=== PATIENT | female | born 1990 | race Caucasian/White ===

== ENCOUNTER 2018-03-26 18:50 | Observation (INO) ==
--- OUTSIDE RECORDS SUMMARY | 2018-03-26 21:01 | External Medical Summary | Continuity of Care Document ---
:1990 Author Organization [facility] Address [address] [place] [address] [phone] Phone Support Name Relationship Address Phone Lisandro Jacinto [address] [place] [address] [phone] [place] [address] Allergies, Adverse Reactions, Alerts Substance Reaction Severity Status No Known Drug Allergies Unknown Active Medications Medication Instructions Dosage Effective Dates (start - stop) Status Comments Drug Treatment Unknown Problems Condition Effective Dates (start - stop) Clinical Status Dysfunctional Uterine Bleeding - Dysfunctional Uterine Bleeding Pelvic and perineal pain Supervision of other high risk - pregnancies, first trimester Oth diseases and conditions compl - preg/chldbrth Less than 8 weeks gestation of - Personal history of comp of preg, - chldbrth and the puerp Retained uterin contracep dev in , unsp trimester Encntr for removal and reinsertion of - uterin contracep dev Retained uterin contracep dev in - , unsp trimester Pelvic and perineal pain Encounter for removal of intrauterine - contraceptive device Encounter for removal of intrauterine contraceptive device 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) - (routine) w/o abn findings Encntr screen for infections w sexl mode of transmiss Encntr screen for infections w sexl mode of transmiss Pap Smear Screening, Cervix Encounter for insertion of - intrauterine contraceptive device Encounter for test, result - negative Active GERD Active Procedures Procedure Date Unknown Results Test Name Date and Time Measure Units Reference Range Abnormal Flag Comments Unknown Advance Directives Directive Yes / No Effective Date File Name Unknown Encounters Encounter Practice Location Reason(s) Diagnoses Date Provider Care Team Description For Visit Members Judith Macario Supervision of Dec-2 Sobbing Referring In Womens other high risk [place]. Provider: Adam CROWDER, pregnancies, 7 700 [address]ef[address] first Medical Yamel L, 1522, trimesterOth Center [address] [place] [address], [facility] and [facility], conditions compl Suite Center [id number], preg/chldbrthLess 120, Carlos 120, [place] than 8 weeks Renaldo Macario, tel: gestation of [place], [place], pregnancyPersonal [id number], [id number]. history of comp [place]. tel: of preg, chldbrth tel: [phone] and the puerp [phone] [facility] Retained uterin Dec-2 Sobbing Referring In Womens Ultrasound contracep dev in [place]. Provider: Adam CROWDER, , unsp 7 700 Estefania PO Box trimester Medical Yamel L, 1522, Center [address] [place] [address], Suite Center [id number], 120, Carlos 120, [place] Renaldo Macario, tel: [place], [address], [id number]. [place]. tel: tel: [phone] Judith Macario Dec-1 Sobbing In Womens [place]. Adam CROWDER, 7 700 PO [address] Medical 1522, Center [address] [place], [facility] [place], [place], [address] [id number], 120, [place], [place]: [place], [address], [place]. tel: [phone] Judith Macario Retained uterin Dec-1 Sobbing Referring In Womens contracep dev in [place]. Provider: Adam CROWDER, , unsp 7 700 [address]efania PO Box trimesterEncntr Medical Yamel L, 1522, for removal and Center [address] [place] [address], reinsertion of [facility], uterin contracep Suite Center [id number], dev 120, Carlos 120, [place] Renaldo Macario, tel:+[phone] [place], [address], [id number]. [place]. 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 Provider: dAam CROWDER, (routine) w/o abn 7 700 [address]efania PO Box findingsEncntr Medical Yamel L, 1522, screen for Center [address] [place], infections w sexl , [facility] [place], mode of 120, Center , transmissEncntr Macario, Carlos 120, [place] screen for Renaldo [place], tel:[phone] infections w sexl [phone] [place], mode of , [place]. [id number]. transmissPap tel: tel:[phone] Smear Screening, [phone] [facility] Encounter for Dec-2 Yamel Referring In Womens insertion of Estefania. Provider: Adam CROWDER, intrauterine 5 700 Estefania PO Box contraceptive Medical Yamel L, 1522, deviceEncounter Center [address] [place], for , [facility] [place], test, result 120, Center , negative Macario, Carlos 120, [place] Renaldo [place], tel:[phone] [place], , [place]. [id number]. tel: tel:[phone] [facility] Pelvic and Dec-0 Yamel Referring In Womens perineal - Estefania. Provider: Adam CROWDER, painEncounter for 5 700 [address]ef[address] PO Box removal of Medical Yamel L, 1522, intrauterine Center [address] [place], contraceptive , [facility] [place], deviceEncounter 120, Center , for removal of Macario, Carlos 120, [place] intrauterine Renaldo [place], tel:[phone] contraceptive [phone] [place], device , [place]. [id number]. tel: tel:[phone] [facility] Dysfunctional Dec-0 Yamel Referring In Womens Ultrasound Uterine Bleeding - Estefania. Provider: Adam CROWDER, 5 700 [address]efania PO Box Medical Yamel L, 1522, Center [facility] [address] [place], Carlos Lam [place], 120, Center [id number], Renaldo, [place] 120, [place] Renaldo [place], tel:[phone] [place], , [place]. [id number]. tel: tel:[phone] [facility] Yamel Referring In Womens Uterine 3-201 Estefania. Provider: Adam CROWDER, BleedingPelvic 5 700 Estefania PO Box and perineal pain Medical Yamel L, 1522, Center [address], [facility] [place], 120, Center [id number], Renaldo, [facility] 120, Renaldo [place], tel:[phone] [place], , [place]. [id number]. tel: tel:[phone] Judith Macario Yamel Referring In Womens 1-201 Estefania. Provider: Adam CROWDER, 4 700 Estefania PO Box Medical Yamel L, 1522, Center [address], [facility] [place], 120, Center [id number], Renaldo, [facility] 120, Renaldo [place], tel:[phone] [facility] , [place]. [id number]. tel: tel:[phone] Judith Macario Yamel Referring In Womens 9-201 Estefania. Provider: Adam CROWDER, 4 700 Estefania PO Box Medical Yamel L, 1522, Center [address], [facility] [place], 120, Center [id number], Renaldo, [facility] 120, [place] Renaldo [place], tel:[phone] [facility] , [place]. [id number]. tel: tel:[phone] Family History Family Member Diagnosis Age At Onset Paternal Grandmother Hypertension No family history of Stroke No family history of Osteoporosis Paternal Grandfather Lung Disease Father Hypertension No family history of Colon Cancer Cousin Ovarian Cancer Maternal Grandmother Renal disease Maternal Grandmother Cancer, breast Maternal Grandfather Cardiovascular Disease No family history of Epilepsy No family history of Thyroid Disorder Maternal Grandmother Diabetes mellitus Immunizations Vaccine Date Status Comments Tdap completed Source: New Immunization Record Influenza, injectable, completed Source: New Immunization Record quadrivalent, preservative free, 3 yrs or older Payers Payer name Insurance type Covered constitution party ID Authorization(s) [facility] [id number] Medicaid [facility] [id number] [facility] [id number] [facility] [id number] Medicaid [facility] [id number] [facility] [id number] Medicaid Social History Type Description Quantity Date Captured Unknown Vital Signs Date / Height Weight BMI Pulse Blood Temperature Respiratory Body Head BMI Time: Rate Pressure Rate Surface Circumference percentile Area Unknown Chief Complaint And Reason For Visit Unknown Chief Complaint And Reason For Visit Reason For Referral Reason For Referral Unknown Plan Of Care Date Type Action Status Goal Lifestyle education regarding completed diet Goal Lifestyle education regarding completed diet Appointment Lisa Jacinto BOOKED Appointment Lisa Jacinto BOOKED Future Order: Radiology Order Transvaginal Pelvic Ultrasound Ordered ([id number]) Date Type Problem Goal Intervention Status Start Date Unknown. History Of Present Illness Encounter Date Complaint History Of Present Illness This patient has no known history of present illness Functional Status Encounter Date Functional Assessment Cognitive Assessment Unknown Medications Administered Medication Instructions Dosage Effective Dates (start - stop) Status Comments Drug Treatment Unknown Instructions Date Instruction Additional Information nutrition and weight gain counseling, special diet toxoplasmosis precautions (cats / raw meat) sexual activity exercise indications for ultrasound influenza vaccine environmental / work hazards travel tobacco (ask, advise, assess, assist and arrange) alcohol illicit / recreational drugs use of any medications (including supplements, vitamins, herbs, OTC drugs) smoking counseling domestic violence seat belt use childbirth classes / hospital facilities hospital registration genetic testing new ob handbook risks HIV and other routine tests risk factors identified by history anticipated course of care Lifestyle education regarding diet Related to Body mass index 35.0-35.9 Giving encouragement to exercise Related to Body mass index 35.0-35.9 Giving encouragement to exercise Related to Body mass index 35.0-35.9 Lifestyle education regarding diet Related to Body mass index 35.0-35.9
--- OUTSIDE RECORDS SUMMARY | 2018-03-26 21:01 | External Medical Summary | Continuity of Care Document ---
:1990 Author Organization [facility] Address [address] [place] [address] [phone] Phone Support Name Relationship Address Phone Lisandro Jacinto [address] [place] [address] [phone] [place] [address] Allergies, Adverse Reactions, Alerts Substance Reaction Severity Status No Known Drug Allergies Unknown Active Medications Medication Instructions Dosage Effective Dates Status Comments (start - stop) Vitamin take 1 tablet by Not Available - Active tablet oral route every day Aspir-Low 81 mg take 1 tablet by 81 MG - Active tablet,delayed oral route every release day Problems Condition Effective Dates (start - stop) Clinical Status Supervision of other high risk - pregnancies, third trimester 33 weeks gestation of - Supervision of other high risk - pregnancies, first trimester Oth diseases and conditions compl - preg/chldbrth 12 weeks gestation of - Personal history of comp of preg, - chldbrth and the puerp Supervision of other high risk - pregnancies, second trimester Oth diseases and conditions compl - preg/chldbrth 25 weeks gestation of - Personal history of comp of preg, - chldbrth and the puerp Dysfunctional Uterine Bleeding - Dysfunctional Uterine Bleeding Pelvic and perineal pain Supervision of other high risk - pregnancies, first trimester Oth diseases and conditions compl - preg/chldbrth Less than 8 weeks gestation of - Personal history of comp of preg, - chldbrth and the puerp Supervision of other high risk - pregnancies, second trimester Oth diseases and conditions compl - preg/chldbrth 21 weeks gestation of - Personal history of comp of preg, - chldbrth and the puerp Supervision of other high risk - pregnancies, second trimester Oth diseases and conditions compl - preg/chldbrth 21 weeks gestation of - Supervision of other high risk - pregnancies, second trimester Oth diseases and conditions compl - preg/chldbrth 16 weeks gestation of - Personal history of comp of preg, - chldbrth and the puerp Supervision of other high risk - pregnancies, third trimester Oth diseases and conditions compl - preg/chldbrth 28 weeks gestation of - Personal history of comp of preg, - chldbrth and the puerp Supervision of other high risk - pregnancies, third trimester Other malformation of placenta, - unspecified trimester 34 weeks gestation of - Personal history of comp of preg, - chldbrth and the puerp Supervision of other high risk - pregnancies, third trimester Other malformation of placenta, - unspecified trimester 35 weeks gestation of - Supervision of other high risk - pregnancies, third trimester 28 weeks gestation of - Personal history of comp of preg, - chldbrth and the puerp Supervision of other high risk - pregnancies, third trimester Abnormal glucose complicating - Oth diseases and conditions compl - preg/chldbrth Personal history of comp of preg, - chldbrth and the puerp Supervision of other high risk - pregnancies, third trimester Other malformation of placenta, - unspecified trimester 34 weeks gestation of - Supervision of other high risk - pregnancies, third trimester Abnormal glucose complicating - Oth diseases and conditions compl - preg/chldbrth Personal history of comp of preg, - chldbrth and the puerp Retained uterin contracep dev in , unsp trimester Encntr for removal and reinsertion of - uterin contracep dev Retained uterin contracep dev in - , unsp trimester Pelvic and perineal pain Encounter for removal of intrauterine - contraceptive device Encounter for removal of intrauterine contraceptive device 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 Encntr screen for infections w sexl mode of transmiss Encntr screen for infections w sexl mode of transmiss Pap Smear Screening, Cervix Encounter for insertion of - intrauterine contraceptive device Encounter for test, result - negative Active GERD Active Procedures Procedure Date Ultrasnd preg uterus, flwup/repeat Results Test Name Date and Time Measure Units Reference Range Abnormal Flag Comments Unknown Advance Directives Directive Yes / No Effective Date File Name Unknown Encounters Encounter Practice Location Reason(s) Diagnoses Date Provider Care Team Description For Visit Members Judith Macario Supervision of [place] Referring In Womens Ultrasound other high risk [place]. Provider: Health [place], pregnancies, 8 [address] third Medical Yamel L, 1522, trimesterOther Center [address] [place], malformation of [place], Medical [place], placenta, Suite Center [id number], unspecified 120, [place] 120, [place] weeks Renaldo Macario, tel:5 gestation of ASHLYN, [place], [id number] [id number], [id number]. [place]. tel: tel: [phone] Judith Macario Supervision of [place] Referring In Womens other high risk [place]. Provider: Health [place], pregnancies, 8 700 [address]ef[address] third Medical Yamel L, 1522, trimesterOther Center 700 [place], malformation of [place], Medical [place], placenta, Suite Center [id number], unspecified 120, [place] 120, [place] [email or web address] weeks Renaldo Macario, tel: gestation of [place], pregnancyPersonal [id number], [id number]. history of comp [place]. tel: of preg, chldbrth tel: [phone] and the puerp [id number] Associates Renaldo Supervision of Jese-0 [place] Referring In Womens Ultrasound other high risk [address] [place] [address]. Provider: Health PA, pregnancies, 8 700 [address] third Medical Yamle L, 1522, trimesterOther Center 700 [place], malformation of [facility], placenta, Suite Center [id number], unspecified 120, Carlos 120, [place] [email or web address] weeks Renaldo Macario, tel: gestation of [place], [address], [id number]. [place]. tel: tel: [phone] Macario Supervision of Hima-2 [place] Referring In Womens other high risk [address] [place] [address]. Provider: Health PA, pregnancies, 8 700 Mic [address] third Medical [place] L, 1522, trimesterAbnormal Center 700 [place], glucose [facility], complicating Suite Center [id number], pregnancyOth 120, Drive [place] diseases and Renaldo, Suite [address], tel: conditions compl ASHLYN Macario, preg/chldbrthPers [address], [place], [address]. onal history of [place]. tel: comp of preg, tel: [phone] chlastrid and the [id number] puerp Associates Renaldo Supervision of Hima-2 [place] Referring In Womens Ultrasound other high risk [address] [place] [address]. Provider: Health VEL, pregnancies, 8 700 [address] third [id number] Medical Yamel L, 1522, weeks gestation Center 700 [place], of [facility], Suite Center [id number], 120, Carlos 120, [place] Renaldo Macario, tel:316 [place], [address], [id number]. [place]. tel: tel: [phone] Macario Supervision of Hima-0 [place] Referring In Womens other high risk [address] [place] [address]. Provider: Health PA, pregnancies, 8 700 [address] third Medical Yamel L, 1522, trimesterAbnormal Center 700 [facility], complicating Suite Center [id number], pregnancyOth 120, Carlos 120, [place] diseases and Renaldo Macario, tel:+ conditions compl [place], preg/chldbrthPers [address], [id number]. onal history of [place]. tel: comp of preg, tel: [phone] chldbrth and the [id number] puerp Associates Renaldo Supervision of May-2 [place] Referring In Womens other high risk -201 [place]. Provider: Health PA, pregnancies, 8 700 [address] third Medical Yamel L, 1522, trimesterOth Center 700 [facility] and [facility], conditions compl Suite Center [id number], preg/[email or web address] 120, Carlos 120, [place] weeks gestation Renaldo Macario, tel: of [place], pregnancyPersonal [address], [id number]. history of comp [place]. tel: of preg, chldbrth tel: [phone] and the puerp [id number] Associates Renaldo Supervision of January-2 [place] Referring In Womens Ultrasound other high risk - [place]. Provider: Health PA, pregnancies, 8 700 [address]ef[address] third [id number] Medical Yamel L, 1522, weeks gestation Center 700 [place], [facility], pregnancyPersonal Suite Center [id number], history of comp 120, Carlos 120, [place] of preg, chldbrth Renaldo Macario, tel: [place], [address], [id number]. [place]. tel: tel: [phone] Associates Renaldo Supervision of May-0 [place] Referring In Womens other high risk 3-201 [place]. Provider: Health PA, pregnancies, 8 700 [address] second Medical Yamel L, 1522, trimesterOth Center 700 [facility] and [facility], conditions compl Suite Center [id number], preg/pmfahdww00 120, Carlos 120, [place] weeks gestation Renaldo aMcario, tel:+[phone] of [place], [place], pregnancyPersonal [address], [id number]. history of comp [place]. tel: of preg, chldbrth tel: [phone] and the puerp [id number] Associates eRnaldo Supervision of Apr-0 [place] Referring In Womens other high risk 5-201 [place]. Provider: Health PA, pregnancies, 8 700 [address] Box second Medical Yamel L, 1522, trimesterOth Center 700 [facility] [email or web address] and [facility], conditions compl Suite Center [id number], preg/ 120, Carlos 120, [place] weeks gestation Renaldo Macario, tel: of [place], pregnancyPersonal [address], [id number]. history of comp [place]. tel: of preg, chldbrth tel: [phone] and the puerp [id number] Associates Renaldo Supervision of Apr-0 [place] Referring In Womens Ultrasound other high risk - [place]. Provider: Health PA, pregnancies, 8 700 Estefania PO Box second Medical Yamel L, 1522, trimesterOth Center 700 [facility] [email or web address] and [facility], conditions compl Suite Center [id number], preg/xutkpqos25 120, Carlos 120, [place] weeks gestation Renaldo Macario, tel:2 [place], [address], [id number]. [place]. tel: tel: [phone] Associates Renaldo Supervision of Mar-0 [place] Referring In Womens other high risk -201 [place]. Provider: Health PA, pregnancies, 8 700 [address] Box second Medical Yamel L, 1522, trimesterOth Center 700 [facility] [email or web address] and [facility], conditions compl Suite Center [id number], preg/czrkftul24 120, Carlos 120, [place] weeks gestation Renaldo Macario, tel:2 of [place], [place], pregnancyPersonal [address], [id number]. history of comp [place]. tel: of preg, chldbrth tel: [phone] and the puerp [id number] Associates Renaldo Supervision of Feb-0 [place] Referring In Womens other high risk [place]. Provider: Health VEL, pregnancies, 8 700 Estefania PO Box first Medical Yamel L, 1522, trimesterOth Center [address] [place] [address] and [facility], conditions compl Suite Center [id number], preg/bsymtowp20 120, Carlos 120, [place] weeks gestation Renaldo Macario, tel: of [place] pregnancyPersonal [address], [id number]. history of comp [place]. tel: of preg, chldbrth tel: [phone] and the puerp [id number] Associates Renaldo Supervision of Dec-2 [place] Referring In Womens other high risk [place]. Provider: Adam CROWDER, pregnancies, 7 700 [address]efania [address] Box first Medical Yamel L, 1522, trimesterOth Center [address] [place] [address] and [facility], conditions compl Suite Center [id number], preg/chldbrthLess 120, Carlos 120, [place] than 8 weeks Renaldo Macario, tel: gestation [place], pregnancyPersonal [address], [id number]. history of comp [place]. tel: of preg, chldbrth tel: [phone] and the puerp [phone] Associates Renaldo Retained uterin Dec-2 [place] Referring In Womens Ultrasound contracep dev in [place]. Provider: Adam CROWDER, , unsp 7 700 Estefania PO Box trimester Medical Yamel L, 1522, Center 700 [place], [facility], Suite Center [id number], 120, Carlos 120, US Renaldo Macario, tel: [place], [address], [id number]. [place]. tel: tel: [phone] Associates Renaldo Retained uterin Dec-1 [place] Referring In Womens contracep dev in [place]. Provider: Adam CROWDER, , unsp 7 700 Estefania PO Box trimesterEncntr Medical Yamel L, 1522, for removal and Center 700 [place], reinsertion of [facility], uterin contracep Suite Center [id number], dev 120, Carlos 120, [place] Renaldo Macario, tel: [place], [address], [id number]. [place]. 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 Provider: Adam CROWDER, (routine) w/o abn 7 700 Estefania PO Box findingsEncntr Medical Yamel L, 1522, screen for Center 700 [place], infections w sexl , [facility] ASHLYN, mode of 120, [place] [id number], transmissEncntr Renaldo, Carlos 120, [place] screen for Renaldo [place], tel: infections w sexl [id number] [place], mode of , [place]. [id number]. transmissPap tel: tel: Smear Screening, [phone] Cervix Judith Macario Encounter for Dec-2 Yamel Referring In Womens insertion of - Estefania. Provider: Adam CROWDER, intrauterine 5 700 [address]efania PO Box contraceptive Medical Yamel L, 1522, deviceEncounter Center 700 [place], for , [facility] ASHLYN, test, result 120, [place] [id number], negative Renaldo, Carlos 120, [place] Renaldo [place], tel: [phone] [place], , [place]. [id number]. tel: tel: [phone] Judith Macario Pelvic and Dec-0 Yamel Referring In Womens perineal -201 Estefania. Provider: Adam CROWDER, painEncounter for 5 700 [address]ef[address] PO Box removal of Medical Yamel L, 1522, intrauterine Center [address] [place], contraceptive , [facility] Olman [place], deviceEncounter 120, Center [id number], for removal of Renaldo, Carlos 120, [place] intrauterine Renaldo [place], tel: contraceptive [phone] [place], device , [place]. [id number]. tel: tel: [phone] Judith Macario Dysfunctional Dec-0 Yamel Referring In Womens Ultrasound Uterine Bleeding 9- Estefania. Provider: Adam CROWDER, 5 700 [address] PO Box Medical Yamel L, 1522, Center [address] Jessica, [facility] [place], 120, Center [id number], Renaldo, [facility] 120, Renaldo [place], tel:[phone] [place], , [place]. [id number]. tel: tel:[phone] Associates Renaldo Hendrickson Jul- Yamel Referring In Womens Uterine 3-201 Estefania. Provider: Adam CROWDER, BleedingPelvic 5 700 [address]ef[address] PO Box and perineal pain Medical Yamel L, 1522, Center [address], [facility], 120, Center [id number], [facility] 120, Renaldo [place], tel:[phone] [place], , [place]. [id number]. tel: tel:[phone] Associates Renaldo Aug-3 Yamel Referring In Womens 1-201 Estefania. Provider: Adam CROWDER, 4 700 [address]ef[address] PO Box Medical Yamel L, 1522, Center [address], [facility], 120, Center [id number], [facility] 120, Renaldo [place], tel:[phone] [place], , [place]. [id number]. tel: tel:+[phone] Associates Renaldo Aug- Yamel Referring In Womens 9-201 Estefania. Provider: Adam CROWDER, 4 700 [address]ef[address] PO Box Medical Yamel L, 1522, Center [facility] Dr Jessica, [facility], 120, Center [id number], [facility] 120, [place] Renaldo [place], tel:[phone] [place], , [place]. [id number]. tel: tel:[phone] Family History Family Member Diagnosis Age At [...] Comments Tdap completed Source: New Immunization Record Tdap completed Source: New Immunization Record Influenza, injectable, completed Source: New Immunization Record quadrivalent, preservative free, 3 yrs or older Payers Payer name Insurance type Covered republican ID Authorization(s) [facility] [id number] [place] [id number] [facility] [id number] [place] [id number] [facility] [id number] [place] BL [id number] [facility] [id number] Medicaid Social History Type Description Quantity Date [...] completed diet Appointment Lisa Jacinto BOOKED Appointment [place], Lisa BOOKED Appointment OrvilleLucrecia scottrice BOOKED Appointment [place], Lisa BOOKED Appointment [place], Lisa BOOKED Appointment OrvilleLucrecia scottrice BOOKED Appointment [place], Lisa BOOKED Appointment Lucrecia Jacintorice BOOKED Future Order: Radiology Order Ultrasound OB Follow-up ([id number]) Ordered Future Order: Radiology Order Transvaginal Pelvic Ultrasound Ordered ([id number]) Future Order: Radiology Order OB Detailed Complete Ultrasound Ordered ([id number]) Future Order: Radiology Order Biophysical Profile without NST Ordered ([id number]) Future Order: Radiology Order Ultrasound OB Follow-up ([id number]) Ordered Future Order: Radiology Order Biophysical Profile without NST Ordered ([id number]) Date Type Problem Goal Intervention Status Start [...]
--- OUTSIDE RECORDS SUMMARY | 2018-03-26 21:01 | External Medical Summary | Continuity of Care Document ---
:1991 Author Organization [facility] Address [address] [place] [address] [phone] Phone Support Name Relationship Address Phone Lisandro Jacinto [address] [place] [address] [phone] [place] [address] Allergies, Adverse Reactions, Alerts Substance Reaction Severity Status No Known Drug Allergies Unknown Active Medications Medication Instructions Dosage Effective Dates Status Comments (start - stop) Vitamin take 1 tablet by Not Available - Active tablet oral route every day Problems Condition Effective Dates (start - [...] removal of intrauterine contraceptive device 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 Provider: Health [place], pregnancies, 8 700 Estefania Box second Medical Yamel L, 1522, [address] [facility], conditions compl Suite Center [id number], preg/[id number] 120, Carlos 120, [place] weeks gestation Renaldo Macario, tel:+ [place], pregnancyPersonal [address], [id number]. history of comp [place]. tel: of preg, chldbrth tel: [phone] and the puerp [id number] Associates Renaldo Fe-2 [place] In Womens [place]. Health [place], 8 700 Box Medical 1522, [place], [place], Suite [id number], 120, [place] Renaldo, tel: [place], [address], [place]. tel: [phone] Judith Macario Supervision of Oct-0 [place] Referring In Womens other high risk [place]. Provider: Health PA, pregnancies, 8 700 Estefania PO Box first Medical Yamel L, 1522, trimesterOth Center [address] [place] [address] and [facility], conditions compl Suite Center [id number], preg/pcfzoqkg15 120, Carlos 120, [place] weeks gestation Renaldo Macario, tel: of [place], pregnancyPersonal [address], [id number]. history of comp [place]. tel: of preg, chldbrth tel: [phone] and the puerp [id number] Associates Renaldo Supervision of Dec-2 [place] Referring In Womens other high risk [place]. Provider: Adam CROWDER, pregnancies, 7 700 Estefania PO Box first Medical Yamel L, 1522, trimesterOth Center 700 [place], diseases and [facility], conditions compl Suite Center [id number], preg/chldbrthLess 120, Carlos 120, [place] than 8 weeks Renaldo Macario, tel: gestation of [place], pregnancyPersonal [address], [id number]. history of comp [place]. tel: of preg, chldbrth tel: [phone] and the puerp [id number] Associates eRnaldo Retained uterin Dec-2 [place] Referring In Womens Ultrasound contracep dev in [place]. Provider: Adam CROWDER, , unsp 7 700 Estefania PO Box trimester Medical Yamel L, 1522, Center 700 [place], [place], [facility], Suite Center [id number], 120, Carlos 120, [place] Renaldo Macario, tel: [place], [address], [id number]. [place]. tel: tel: [phone] Associates Renaldo Retained uterin Dec- [place] Referring In Womens contracep dev in [place]. Provider: Adam CROWDER, , unsp 7 700 Estefania PO Box trimesterEncntr Medical Yamel L, 1522, for removal and Center 700 [place], [facility], uterin contracep Suite Center [id number], dev 120, Carlos 120, [place] Renaldo Macario, tel: [place], [address], [id number]. [place]. 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 Provider: Adam CROWDER, (routine) w/o abn 7 700 Estefania PO Box findingsEncntr Medical Yamel L, 1522, screen for Center 700 [place], infections w sexl , [facility] Olman [place], mode of 120, Center [id number], transmissEncntr Renaldo, Carlos 120, [place] screen for Renaldo [place], tel:+[phone] infections w sexl [id number] [place], mode of , [place]. [id number]. transmissPap tel: tel:+316 Smear Screening, [phone] Cervix Associates Renaldo Encounter for Dec-2 Yamel Referring In Womens insertion of 1- Estefania. Provider: Health PA, intrauterine 5 700 Estefania PO Box contraceptive Medical Yamel L, 1522, deviceEncounter Center [address] [place] [address], for , [facility] Olman [place], test, result 120, [place] [id number], negative Renaldo [place] 120, [place] Renaldo [place], tel:+[phone] [place], , [place]. [id number]. tel: tel:[phone] Judith Macario Pelvic and Dec-0 Yamel Referring In Womens perineal 9- Estefania. Provider: Health VEL, painEncounter for 5 700 Estefania PO Box removal of Medical Yamel L, 1522, intrauterine Center [address] [place] [address], contraceptive , [facility] [place]man [place], deviceEncounter 120, Center [id number], for removal of Renaldo, Carlos 120, [place] intrauterine Renaldo [place], tel:+[phone] contraceptive [id number] [place], device , [place]. [id number]. tel: tel:+[phone] Judith Macario Dysfunctional Dec-0 Yamel Referring In Womens Ultrasound Uterine Bleeding 9-201 Estefania. Provider: Health VEL, 5 700 Estefania PO Box Medical Yamel L, 1522, Center [facility] Dr Jessica, [place], 120, Center [id number], Renaldo, Carlos 120, [place] Renaldo [place], tel:[phone] [place], , [place]. [id number]. tel: tel:+[phone] Judith Macario Dysfunctional Nov-2 Yamel Referring In Womens Uterine 3-201 Estefania. Provider: Health VEL, BleedingPelvic 5 700 Estefania PO Box and perineal pain Medical Yamel L, 1522, Center [address], [facility] Medical [place], 120, Center [id number], Macario, [facility] 120, [place] Renaldo [place], tel:[phone] [place], , [place]. [id number]. tel: tel:[phone] Associates Renaldo Yamel Referring In Womens -201 Estefania. Provider: Adam CROWDER, 4 700 Estefania PO Box Medical Yamel L, 1522, Center [address] Dr Jessica, [facility] [place], 120, Center [id number], Renaldo, [facility] 120, [place] Renaldo [place], tel:[phone] [place], , [place]. [id number]. tel: tel:[phone] Associates Renaldo Yamel Referring In Womens -201 Estefania. Provider: Adam CROWDER, 4 700 Estefania PO Box Medical Yamel L, 1522, Center [address] Dr Jessica, [facility] [place], 120, Center [id number], Renaldo, [facility] 120, [place] Renaldo [place], tel:[phone] [place], , [place]. [id number]. tel: tel:[phone] Family History Family Member Diagnosis Age At [...] older Payers Payer name Insurance type Covered democrat ID Authorization(s) [facility] [id number] Medicaid [facility] [id number] [facility] [id number] [facility] [id number] [place] [id number] [facility] [id number] Medicaid Social History Type Description Quantity Date [...] Lisa Jacinto BOOKED Appointment Lisa Jacinto BOOKED Appointment Lisa Jacinto BOOKED Future Order: Radiology Order Transvaginal Pelvic Ultrasound Ordered ([id number]) Date Type Problem Goal Intervention Status Start [...]
--- OUTSIDE RECORDS SUMMARY | 2018-03-26 21:01 | External Medical Summary | Continuity of Care Document ---
:1990 Author Organization [facility] Address [address] [place] [address] [phone] Phone Support Name Relationship Address Phone Lisandro Jacinto [address] [place] [address] [phone] [place] [address] Allergies, Adverse Reactions, Alerts Substance Reaction Severity [...] Personal history of comp of preg, - chldbrt and the puerp Supervision of other high risk - pregnancies, third trimester Other malformation of placenta, - unspecified trimester 34 weeks gestation of - Personal history of comp of preg, - chldbrt and the puerp Supervision of other high [...] unspecified trimester 34 weeks gestation of - Retained uterin contracep dev in , unsp trimester Encntr for removal and reinsertion of - uterin contracep dev Retained uterin contracep dev in - , unsp trimester Pelvic and perineal pain Encounter for removal of intrauterine - contraceptive device Encounter for removal of intrauterine contraceptive device 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) - (routine) w/o abn findings Encntr screen for infections w sexl mode of transmiss Encntr screen for infections w sexl mode of transmiss Pap Smear Screening, Cervix Encounter for insertion of - intrauterine contraceptive device Encounter for test, result - negative Active GERD Active Procedures Procedure Date OB Visit No Charge Immuniz admnin, 1 vac, sngl/combo 19 Yrs + TDAP VACCINE >7 IM Results Test Name Date and Time Measure Units Reference Range Abnormal Flag Comments Unknown Advance Directives Directive Yes / No Effective Date File Name Unknown Encounters Encounter Practice Location Reason(s) Diagnoses Date Provider Care Team Description For Visit Members Judith Macario Supervision of [place] Referring In Womens Ultrasound other high risk [place]. Provider: Adam CROWDER, pregnancies, 8 [address] third Medical Yamel L, 1522, trimesterOther Center [address] [place], [facility], Medical [place], placenta, Suite Center [id number], unspecified 120, Carlos 120, [place] [id number] weeks Renaldo Macario, tel:3 [place], [address], [id number]. [place]. tel: tel: [phone] Judith Macario Supervision of [place] Referring In Womens other high risk 5-201 [place]. Provider: Adam CROWDER, pregnancies, 8 700 [address] third Medical Yamel L, 1522, trimesterOther Center [address] [place], malformation of [facility], [facility] [place], placenta, Suite Center [id number], unspecified 120, Carlos 120, [place] [id number] weeks Renaldo Macario, tel: gestation of [place], [place], pregnancyPersonal [address], [id number]. history of comp [place]. tel: of preg, chldbrth tel: [phone] and the puerp [id number] Associates Ren[facility]do Supervision of Mar-0 [place] Referring In Womens Ultrasound other high risk -[address] [place] [address]. Provider: Health PA, pregnancies, 8 700 [address] third Medical Yamel L, 1522, trimesterOther Center [address] [place], malformation of [facility], [facility] [place], placenta, Suite Center [id number], unspecified 120, Carlos 120, [place] [id number] weeks Renaldo Macario, tel: gestation of [place], [address], [id number]. [place]. tel: tel: [phone] Macario Supervision of Hima-2 [place] Referring In Womens other high risk [address] [place] [address]. Provider: Health PA, pregnancies, 8 700 [place] [address] third Medical [place] L, 1522, trimesterAbnormal Center [address] [place], glucose [facility], [facility] [place], complicating Suite Center [id number], pregnancyOth 120, Drive [place] diseases and Renaldo, [address], tel: conditions compl [place] Macario, preg/chldbrthPers [address], [place], [address]. onal history of [place]. tel: comp of preg, tel: [phone] chlastrid and the [phone] puerp Associates Ren[facility]do Supervision of Hima-2 [place] Referring In Womens Ultrasound other high risk [address] [place] [address]. Provider: Health PA, pregnancies, 8 [address] third [id number] Medical Yamel L, 1522, weeks gestation Center [address] [place], of [facility], [facility] [place], Suite Center [id number], 120, Carlos 120, [place] Renaldo Macario, tel: [place], [place], [address], [id number]. [place]. tel: tel: [phone] Macario Supervision of Hima-0 [place] Referring In Womens other high risk 5-201 [place]. Provider: Health PA, pregnancies, 8 700 [address] third Medical Yamel L, 1522, trimesterAbnormal Center 700 [facility], complicating Suite Center [id number], pregnancyOth 120, Carlos 120, [place] diseases and Renaldo Macario, tel:+2 conditions compl [place], preg/chldbrthPers [address], [id number]. onal history of [place]. tel: comp of preg, tel: [phone] chlastrid and the [phone] puerp Judith Macario Supervision of January-2 [place] Referring In Womens other high risk 4-201 [place]. Provider: Health PA, pregnancies, 8 [address] third Medical Yamel L, 1522, trimesterOth Center 700 [facility], conditions compl Suite Center [id number], preg/[id number] 120, Carlos 120, [place] weeks gestation Renaldo Macario, tel:+2 of [place], pregnancyPersonal [address], [id number]. history of comp [place]. tel: of preg, chldbrth tel: [phone] and the puerp [phone] Judith Macario Supervision of January-2 [place] Referring In Womens Ultrasound other high risk 4-201 [place]. Provider: Adam CROWDER, pregnancies, 8 [address] third [id number] Medical Yamel L, 1522, weeks gestation Center 700 [facility], pregnancyPersonal Suite Center [id number], history of comp 120, Carlos 120, [place] of preg, chldbrth Renaldo Macario, tel: [place], [address], [id number]. [place]. tel: tel: [phone] Macario Supervision of May-0 [place] Referring In Womens other high risk 3-201 [place]. Provider: Health PA, pregnancies, 8 [address] second Medical Yamel L, 1522, trimesterOth Center 700 [facility] [address] [facility], conditions compl Suite Center [id number], preg/nqhzotre89 120, Carlos 120, [place] weeks gestation Renaldo Macario, tel: [place], pregnancyPersonal [address], [id number]. history of comp [place]. tel: of preg, chldbrth tel: [phone] and the puerp [phone] Associates Renaldo Supervision of Apr-0 [place] Referring In Womens other high risk 5-201 [place]. Provider: Health PA, pregnancies, 8 [address] Box second Medical Yamel L, 1522, trimesterOth Center 700 [facility] [address] [facility], conditions compl Suite Center [id number], preg/txjbtydg22 120, Carlos 120, [place] weeks gestation Renaldo Macario, tel: of [place], pregnancyPersonal [address], [id number]. history of comp [place]. tel: of preg, chldbrth tel: [phone] and the puerp [phone] Associates Renaldo Supervision of Apr-0 [place] Referring In Womens Ultrasound other high risk 5-201 [place]. Provider: Health PA, pregnancies, 8 700 [address] Box second Medical Yamel L, 1522, trimesterOth Center 700 [facility] and [facility] conditions compl Suite Center [id number], preg/cnfkupdt00 120, Carlos 120, [place] weeks gestation Renaldo Macario, tel:2 [place], [address], [id number]. [place]. tel: tel: [phone] Associates Renaldo Supervision of Mar-0 [place] Referring In Womens other high risk 1-201 [place]. Provider: Health PA, pregnancies, 8 700 [address] second Medical Yamel L, 1522, trimesterOth Center 700 [facility], conditions compl Suite Center [id number], preg/ 120, Carlos 120, [place] weeks gestation Renaldo Macario, tel:+2 [place], [place], pregnancyPersonal [address], [id number]. history of comp [place]. tel: of preg, chldbrth tel: [phone] and the puerp [phone] Associates Renaldo Supervision of Oct- [place] Referring In Womens other high risk [place]. Provider: Adam CROWDER, pregnancies, 8 700 [address] Box first Medical Yamel L, 1522, trimesterOth Center [address] [place], diseases and [facility], conditions compl Suite Center [id number], preg/vlftuopk47 120, Carlos 120, [place] weeks gestation Renaldo Macario, tel: of [place], pregnancyPersonal [address], [id number]. history of comp [place]. tel: of preg, chldbrth tel: [phone] and the puerp [id number] Associates Renaldo Supervision of Dec-2 [place] Referring In Womens other high risk [place]. Provider: Adam CROWDER, pregnancies, 7 700 [address] Box first Medical Yamel L, 1522, trimesterOth Center [address] [place], [facility], conditions compl Suite Center [id number], preg/chldbrthLess 120, Carlos 120, [place] than 8 weeks Renaldo Macario, tel: gestation [place], pregnancyPersonal [address], [id number]. history of comp [place]. tel: of preg, chldbrth tel: [phone] and the puerp [id number] Associates Renaldo Retained uterin Dec-2 [place] Referring In Womens Ultrasound contracep dev in [place]. Provider: Adam CROWDER, , unsp 7 700 [address] PO Box trimester Medical Yamel L, 1522, Center [address] [place], [facility], [facility], Suite Center [id number], 120, Carlos 120, [place] Renal[place] Macario, tel: [place], [address], [id number]. [place]. tel: tel:[phone] Associates Ren[facility]do Retained uterin Dec-1 [place] Referring In Womens contracep dev in [place]. Provider: Adam CROWDER, , unsp 7 700 [address] Box trimesterEncntr Medical Yamel L, 1522, for removal and Center [address] [place], reinsertion of Drive, Medical [place], uterin contracep Suite Center [id number], dev 120, Carlos 120, [place] Renaldo Macario, tel:+ [place], [place], [address], [id number]. [place]. tel: tel: [phone] Judith Macario Encntr for coremaker machine Hima-0 [place] Referring In Womens exam (general) 1-201 [place]. Provider: Health VEL, (routine) w/o abn 7 [address] Box findingsEncntr Medical Yamel L, 1522, screen for Center [address] [place], infections w sexl , [facility] ASHLYN, mode of 120, Center , transmissEncntr Renaldo, Carlos 120, [place] screen for Renaldo [place], tel: infections w sexl [phone] [place], mode of , [place]. [id number]. transmissPap tel: tel: Smear Screening, [phone] Cervix Judith Macario Encounter for Dec-2 Yamel Referring In Womens insertion of Estefania. Provider: Health VEL, intrauterine 5 [address] Box contraceptive Medical Yamel L, 1522, deviceEncounter Center [address] [place] [address], for , [facility] [place]SH[place], test, result 120, [place] , negative Renaldo, Carlos 120, [place] Renaldo [place], tel:+ [phone] [place], , [place]. [id number]. tel: tel: [phone] Judith Macario Pelvic and Dec-0 Yamel Referring In Womens perineal -201 Estefania. Provider: Health VEL, painEncounter for 5 [address] Box removal of Medical Yamel L, 1522, intrauterine Center [address] [place], contraceptive , [facility] [place], deviceEncounter 120, Center [id number], for removal of Renaldo, Carlos 120, [place] intrauterine Renaldo [place], tel:+[phone] contraceptive [phone] [place], device , [place]. [id number]. tel: tel: [phone] uJdith Macario Dysfunctional Dec-0 Yamel Referring In Womens Ultrasound Uterine Bleeding 9- Estefania. Provider: Adam CROWDER, 5 [address] Medical Yamel L, 1522, Center [address], [facility] [place], 120, Center [id number], Renaldo, [facility] 120, [place] Renaldo [place], tel:[phone] [place], , [place]. [id number]. tel: tel:+-[phone] Associates Renaldo Hendrickson Yamel Referring In Womens Uterine 3-201 Estefania. Provider: Adam CROWDER, BleedingPelvic 5 700 [address] Box and perineal pain Medical Yamel L, 1522, Center [address], [facility] [place], 120, Center [id number], Renaldo, [facility] 120, [place] Renaldo [place], tel:[phone] [place], , [place]. [id number]. tel: tel:+[phone] Judith Macario Yamel Referring In Womens 1-201 Estef[place]. Provider: Adam CROWDER, 4 700 [address] PO Box Medical Yamel L, 1522, Center [address] Dr [address], [facility], 120, Center [id number], Renaldo [facility] 120, [place] Renaldo [place], tel:[phone] [place], , [place]. [id number]. tel: tel:+-[phone] Judith Macario Yamel Referring In Womens 9- Estefania. Provider: Adam CROWDER, 4 700 [address] PO Box Medical Yamel L, 1522, Center [address] Dr [address], [facility] [place], 120, Center [id number], Renaldo [facility] 120, [place] Renaldo [place], tel:[phone] [place], , [place]. [id number]. tel: tel:[phone] Family History Family Member Diagnosis Age At [...] older Payers Payer name Insurance type Covered alliance party ID Authorization(s) [facility] [id number] [place] [id number] [facility] [id number] [place] [id number] [facility] [id number] [place] [id number] [facility] [id number] Medicaid Social History Type Description Quantity Date Captured Alcohol Use Details No Caffeine Use Details Unknown Tobacco Use Status Unknown Smoking Status Never smoker Vital Signs Date / Height Weight BMI Pulse Blood Temperature Respiratory Body Head BMI Time: Rate Pressure Rate Surface Circumference percentile Area 242.00 38.4 lbs 7 2:36 kg/m PM eter (2) 38.1 2018 4 2:35 kg/m PM eter (2) Chief Complaint And Reason For Visit Unknown [...] Order: Radiology Order Transvaginal Pelvic Ultrasound Ordered ([id number]) Future Order: Radiology Order OB Detailed Complete Ultrasound Ordered ([id number]) Future Order: Radiology Order Biophysical Profile without NST Ordered ([id number]) Future Order: Radiology Order Ultrasound OB Follow-up ([id number]) Ordered Future Order: Radiology Order Ultrasound OB Follow-up ([id number]) Ordered Future Order: Radiology Order Biophysical Profile without NST Ordered ([id number]) Date Type Problem Goal Intervention Status Start [...]
--- OUTSIDE RECORDS SUMMARY | 2018-03-26 21:01 | External Medical Summary | Continuity of Care Document ---
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 Provider: Adam CROWDER, pregnancies, 7 700 [address] first Medical Yamel L, 1522, trimesterOth Center 700 [place], diseases and [facility], conditions compl Suite Center [id number], preg/chldbrthLess 120, Carlos 120, [place] than 8 weeks Renaldo Macario, tel: gestation [place], [place], pregnancyPersonal [address], [id number]. history of comp [place]. tel: of preg, chldbrth tel: [phone] and the puerp [id number] Associates Renaldo Retained uterin Dec-2 [place] Referring In Womens Ultrasound contracep dev in [place]. Provider: Adam CROWDER, , unsp 7 700 [address] PO Box trimester Medical Yamel L, 1522, Center 700 [facility], Suite Center [id number], 120, Carlos 120, [place] Renaldo Macario, tel: [place], [address], [id number]. [place]. tel: tel: [phone] Judith Macario Retained uterin Dec- [place] Referring In Womens contracep dev in [place]. Provider: Adam CROWDER, , unsp 7 700 [address] PO Box trimesterEncntr Medical Yamel L, 1522, for removal and Center 700 [place], reinsertion of [facility], uterin contracep Suite Center [id number], dev 120, Carlos 120, [place] Renaldo Macario, tel: [place], [address], [id number]. [place]. tel: tel: [phone] Judith Macario Dec- Brandin In Womens -201 [place]. 700 Health VEL, 7 Medical PO Box Center 1522, , [place] Lopez, 120, Renaldo [place], [id number], [place], [place] [id number] tel: , [place]. 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 Provider: Adam CROWDER, (routine) w/o abn 7 700 [address] Box findingsEncntr Medical Yamel L, 1522, screen for Center 700 [place], infections w sexl , Carlos Olman [place], mode of 120, Center , transmissEncntr Macario, Carlos 120, [place] screen for Renaldo [place], tel:+[phone] infections w sexl [phone] [place], mode of , [place]. [id number]. transmissPap tel: tel:+316 Smear Screening, [phone] Cervix Associates Renaldo Encounter for Dec-2 Yamel Referring In Womens insertion of Estefania. Provider: Adam CROWDER, intrauterine 5 700 [address] PO Box contraceptive Medical Yamel L, 1522, deviceEncounter Center 700 [place], for , [facility] [place]SHLY[place], test, result 120, Center , negative Macario, Carlos 120, [place] Renaldo [place], tel:[phone] [place], , [place]. [id number]. tel: tel:[phone] Associates Renaldo Pelvic and Dec-0 Yamel Referring In Womens perineal - Estefania. Provider: Adam CROWDER, painEncounter for 5 700 [place] PO Box removal of Medical Yamel L, 1522, intrauterine Center 700 [place], contraceptive , [facility] Medical [place], deviceEncounter 120, Center , for removal of Macario, Carlos 120, [place] intrauterine Renaldo [place], tel:+[phone] contraceptive [id number] [place], device , [place]. [id number]. tel: tel:+[phone] Associates Ren[facility]do Dysfunctional Dec-0 Yamel Referring In Womens Ultrasound Uterine Bleeding - Estefania. Provider: Adam CROWDER, 5 700 [address] PO Box Medical Yamel L, 1522, Center [address] [place], Dr Carlos Olman [place], 120, Center [id number], Renaldo, Carlos 120, [place] Renaldo [place], tel:+[phone] [place], , [place]. [id number]. tel: tel:+[phone] Associates Renaldo [facility] Yamel Referring In Womens Uterine 3-201 Estef[place]. Provider: Adam CROWDER, BleedingPelvic 5 700 [address] PO Box and perineal pain Medical Yamel L, 1522, Center [address] Dr [address], [facility] [place], 120, Center [id number], Renaldo, [facility] 120, Renaldo [place], tel:[phone] [place], , [place]. [id number]. tel: tel:[phone] [facility] Yamel Referring In Womens 1-201 [place]. Provider: Adam CROWDER, 4 700 [place]ef[place] PO Box Medical Yamel L, 1522, Center [address] Dr [address], [facility] [place], 120, Center [id number], Renaldo, [facility] 120, Renaldo [place], tel:[phone] [facility] , [place]. [id number]. tel: tel:[phone] Judith Macario Yamel Referring In Womens 9-201 Estefania. Provider: Adam CROWDER, 4 700 [address]ef[place] PO Box Medical Yamel L, 1522, Center [address] Dr [address], [facility] [place], 120, Center [id number], Renaldo, [facility] 120, [place] Renaldo [place], tel:[phone] [place], , [place]. [id number]. tel: tel:[phone] Family History Family Member Diagnosis Age At [...] name Insurance type Covered democrat ID Authorization(s) [facility] [place] [id number] [facility] [id number] Medicaid [facility] [place] [id number] [facility] [id number] Medicaid [facility] [place] [id number] [facility] [id number] Medicaid Social History Type Description Quantity Date [...] Order: Radiology Order Transvaginal Pelvic Ultrasound Ordered ([id number]) Date Type Problem Goal Intervention Status Start [...]
--- OUTSIDE RECORDS SUMMARY | 2018-03-26 21:01 | External Medical Summary | Continuity of Care Document ---
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) w/o abn findings Encntr screen for infections w sexl mode of transmiss Encntr screen for infections w sexl mode of transmiss Pap Smear Screening, Cervix Encounter for insertion of - intrauterine contraceptive device Encounter for test, result Dec-21-2015 - negative Active GERD Active Procedures Procedure Date Unknown Results Test Name Date and Time Measure Units Reference Range Abnormal Flag Comments Unknown Advance Directives Directive Yes / No Effective Date File Name Unknown Encounters Encounter Practice Location Reason(s) Diagnoses Date Provider Care Team Description For Visit Members Judith Macario Supervision of Hima-0 [place] Referring In Womens other high risk - [place]. Provider: Health VEL, pregnancies, 8 [address] third Medical Yamel L, 1522, trimesterAbnormal Center 700 [facility], complicating Suite Center [id number], pregnancyOth 120, Carlos 120, [place] diseases and Renaldo Macario, tel:+ conditions compl [place], preg/chldbrthPers [address], [id number]. onal history of [place]. tel: comp of preg, tel: [phone] chldbrth and the [id number] puerp Associates Renaldo Hima-0 [place] In Womens [place]. Health VEL, 8 700 [address] Medical [address]22, [place], [place], [address] [id number], 120, [place] Ren[place], tel: [place], [address], [place]. tel: [phone] Judith Macario Supervision of January- [place] Referring In Womens other high risk [place]. Provider: Adam CROWDER, pregnancies, 8 700 Estefania [address] third Medical Yamel L, 1522, trimesterOth Center 700 [facility], conditions compl Suite Center [id number], preg/ysogiltl13 120, Carlos 120, [place] weeks gestation Renaldo Macario, tel: of [place], pregnancyPersonal [address], [id number]. history of comp [place]. tel: of preg, chldbrth tel: [phone] and the puerp [id number] Judith Macario Supervision of January-2 [place] Referring In Womens Ultrasound other high risk [place]. Provider: Adam CROWDER, pregnancies, 8 700 Estefania PO [address] third [id number] Medical Yamel L, 1522, weeks gestation Center 700 [address] [place], [facility], [facility], pregnancyPersonal Suite Center [id number], history of comp 120, Carlos 120, [place] of preg, chldbrth Renaldo Macario, [place]: [place], [address], [id number]. [place]. tel: tel: [phone] Judith Macario Supervision of May-0 [place] Referring In Womens other high risk 3-201 [place]. Provider: Health PA, pregnancies, 8 700 Estefania PO Box second Medical Yamel L, 1522, trimesterOth Center 700 [facility] [employer] and [facility], conditions compl Suite Center [id number], preg/mdzzhzqa68 120, Carlos 120, [place] weeks gestation Renaldo Macario, tel: of [place], [place], pregnancyPersonal [address], [id number]. history of comp [place]. tel: of preg, chldbrth tel: [phone] and the puerp [id number] Associates Renaldo Supervision of Apr-0 [place] Referring In Womens other high risk 5-201 [place]. Provider: Health PA, pregnancies, 8 700 Estefania PO Box second Medical Yamel L, 1522, trimesterOth Center 700 [facility] [employer] and [facility], [facility], conditions compl Suite Center [id number], preg/pbtlatib51 120, Carlos 120, [place] weeks gestation Renaldo Macario, tel: of [place], [place], pregnancyPersonal [address], [id number]. history of comp [place]. tel: of preg, chldbrth tel: [phone] and the puerp [id number] Associates Renaldo Supervision of Apr-0 [place] Referring In Womens Ultrasound other high risk 5-201 [place]. Provider: Health PA, pregnancies, 8 700 Estefania PO Box second Medical Yamel L, 1522, trimesterOth Center 700 [facility] [employer] and [facility], [facility], conditions compl Suite Center [id number], preg/rejghzvz90 120, Carlos 120, [place] weeks gestation Renaldo Macario, tel:2 [place], [address], [id number]. [place]. tel: tel: [phone] Judith Macario Supervision of Mar-0 [place] Referring In Womens other high risk [place]. Provider: Adam CROWDER, pregnancies, 8 700 [address]efania PO Box second Medical Yamel L, 1522, trimesterOth Center 700 [facility] [employer] and [facility], conditions compl Suite Center [id number], preg/bqmznteb13 120, Carlos 120, [place] weeks gestation Renaldo Macario, tel:+ of [place], pregnancyPersonal [address], [id number]. history of comp [place]. tel: of preg, chldbrth tel: [phone] and the puerp [id number] Associates Renaldo Supervision of Oct-0 [place] Referring In Womens other high risk [place]. Provider: Aadm CROWDER, pregnancies, 8 700 Estefania PO Box first Medical Yamel L, 1522, trimesterOth Center 700 [facility] [employer] and [facility], conditions compl Suite Center [id number], preg/oafiqyht81 120, Carlos 120, [place] weeks gestation Renaldo Macario, tel:+ of [place], pregnancyPersonal [address], [id number]. history of comp [place]. tel: of preg, chldbrth tel: [phone] and the puerp [id number] Associates Renaldo Supervision of Dec-2 [place] Referring In Womens other high risk [place]. Provider: Adam CROWDER, pregnancies, 7 700 Estefania PO Box first Medical Yamel L, 1522, trimesterOth Center 700 [facility] [employer] and [facility], conditions compl Suite Center [id number], preg/chldbrthLess 120, Carlos 120, [place] than 8 weeks Renaldo Macario, tel:+ gestation of [place], pregnancyPersonal [address], [id number]. history of comp [place]. tel:+ of preg, chldbrth tel: [phone] and the puerp [id number] Associates Renaldo Retained uterin Dec-2 [place] Referring In Womens Ultrasound contracep dev in [place]. Provider: Adam CROWDER, , unsp 7 700 Estefania PO Box trimester Medical Yamel L, 1522, Center 700 [address], [facility], [address] , 120, Carlos 120, [place] Renal[place]ario, tel: [place], [address], [id number]. [place]. tel: tel: [phone] Judith Macario Retained uterin Dec-1 [place] Referring In Womens contracep dev in [place]. Provider: Adam CROWDER, , unsp 7 700 Estefania PO Box trimesterEncntr Medical Yamel L, 1522, for removal and Center 700 [place] [place], reinsertion of Drive, Medical [place], uterin contracep Suite Center , dev 120, Carlos 120, [place] Renaldo Macario, tel: [place], [address], [id number]. [place]. 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 Provider: Adam CROWDER, (routine) w/o abn 7 700 Estefania PO Box findingsEncntr Medical Yamel L, 1522, screen for Center 700 [address] [place], infections w sexl , [facility] [place], mode of 120, Center , transmissEncntr Renaldo, Carlos 120, [place] screen for Renaldo [place], tel: infections w sexl [phone] [place], mode of , [place]. [id number]. transmissPap tel: tel: Smear Screening, [phone] [facility] Renaldo Encounter for Dec-2 Yamel Referring In Womens insertion of Estefania. Provider: Adam CROWDER, intrauterine 5 700 [address]efania PO Box contraceptive Medical Yamel L, 1522, deviceEncounter Center 700 [address] [place], for , [facility] [place], test, result 120, Center , negative Renaldo, Carlos 120, [place] Renaldo [place], tel: [phone] [place], , [place]. [id number]. tel: tel: [phone] Judith Macario Pelvic and Dec-0 Yamel Referring In Womens perineal - Estefania. Provider: Health VEL, painEncounter for 5 700 Estefania PO Box removal of Medical Yamel L, 1522, intrauterine Center 700 [address], anshul Lam, [facility] Medical [place], deviceEncounter 120, Center , for removal of Macario, Carlos 120, US intrauterine Renaldo [place], tel:+[phone] contraceptive [phone] [place], device , [place]. [id number]. tel: tel:[phone] Judith Macario Dysfunctional Dec-0 Yamel Referring In Womens Ultrasound Uterine Bleeding 9-201 Estefania. Provider: Adam CROWDER, 5 700 [address]efania PO Box Medical Yamel L, 1522, Center [address], [facility] Medical [place], 120, Center [id number], Renaldo, [facility] 120, [place] Renaldo [place], tel:[phone] [place], , [place]. [id number]. tel: tel:+[phone] Judith Macario Dysfunctional Nov-2 Yamel Referring In Womens Uterine 3-201 Estefania. Provider: Adam CROWDER, BleedingPelvic 5 700 Estefania PO Box and perineal pain Medical Yamel L, 1522, [address], [facility] Medical [place], 120, Center [id number], Renaldo, [facility] 120, [place] Renaldo [place], tel:[phone] [place], , [place]. [id number]. tel: tel:[phone] Judith Macario Dec-3 Yamel Referring In Womens 1-201 Estefania. Provider: Adam CROWDER, 4 700 Estefania PO Box Medical Yamel L, 1522, Center [address] Dr Jessica, [facility] Medical [place], 120, Center [id number], Renaldo [facility] 120, [place] Renaldo [place], tel:[phone] [place], , [place]. [id number]. tel: tel:[phone] Judith Macario Dec-1 Yamel Referring In Womens 9-201 Estefania. Provider: Adam CROWDER, 4 700 Estefania PO Box Medical Yamel L, 1522, Center [facility] Dr Jessica, [facility] 120[facility] [id number], [facility] 120, Renaldo G[place]ERG, tel:[phone] [place] [address] , . [id number]. tel: tel:[phone] Family History Family Member Diagnosis Age At [...] name Insurance type Covered democrat ID Authorization(s) [facility] [id number] [place] BL [id number] [facility] [id number] [facility] [id number] [place] [id number] [facility] [id number] Medicaid Social History Type Description Quantity Date [...] Order: Radiology Order Transvaginal Pelvic Ultrasound Ordered ([id number]) Future Order: Radiology Order OB Detailed Complete Ultrasound Ordered ([id number]) Future Order: Radiology Order Ultrasound OB Follow-up ([id number]) Ordered Date Type Problem Goal Intervention Status Start [...]
--- OUTSIDE RECORDS SUMMARY | 2018-03-26 21:02 | External Medical Summary | Continuity of Care Document ---
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 Provider: Health VEL, pregnancies, 8 700 Estefania PO Box third Medical Yamel L, 1522, trimesterAbnormal Center 700 [facility], complicating Suite Center [id number], pregnancyOth 120, Carlos 120, [place] diseases and Renaldo Macario, tel:+ conditions compl [place], [place], preg/chldbrthPers [address], [id number]. onal history of [place]. tel: comp of preg, tel: [phone] analia and the [id number] puerp Judith Macario Supervision of Sob[place] Referring In Womens other high risk - [place]. Provider: Adam CROWDER, pregnancies, 8 700 Estefania PO Box third Medical Yamel L, 1522, trimesterOth Center 700 [place] [place] and [facility], conditions compl Suite Center [id number], preg/ncowqull24 120, Carlos 120, [place] weeks gestation Renaldo Macario, tel: of [place], pregnancyPersonal [address], [id number]. history of comp [place]. tel: of preg, chldbrth tel: [phone] and the puerp [id number] Judith Macario Supervision of [place] Referring In Womens Ultrasound other high risk -201 [place]. Provider: Health VEL, pregnancies, 8 700 Estefania PO Box third [id number] Medical Yamel L, 1522, weeks gestation Center 700 [place], [facility], pregnancyPersonal Suite Center [id number], history of comp 120, Carlos 120, [place] of preg, chldbrth Renaldo Macario, tel:+2 [place], [address], [id number]. [place]. tel: tel: [phone] Judith Macario Supervision of May-0 [place] Referring In Womens other high risk 3-201 [place]. Provider: Health PA, pregnancies, 8 700 Estefania PO Box second Medical Yamel L, 1522, trimesterOth Center 700 [place], [address], [facility], conditions compl Suite Center [id number], preg/dhikhjrn52 120, Carlos 120, [place] weeks gestation Renaldo Macario, tel:+ of [place], [place], pregnancyPersonal [address], [id number]. history of comp [place]. tel: of preg, chldbrth tel: [phone] and the puerp [id number] Associates Renaldo Supervision of Apr-0 [place] Referring In Womens other high risk 5-201 [place]. Provider: Health PA, pregnancies, 8 700 Estefania PO Box second Medical Yamel L, 1522, trimesterOth Center 700 [place], [employer] and [facility], [facility], conditions compl Suite Center [id number], preg/ 120, Carlos 120, [place] weeks gestation Renaldo Macario, tel:+ of [place], [place], pregnancyPersonal [address], [id number]. history of comp [place]. tel: of preg, chldbrth tel: [phone] and the puerp [id number] Associates Renaldo Supervision of Apr-0 [place] Referring In Womens Ultrasound other high risk 5-201 [place]. Provider: Adam PA, pregnancies, 8 700 Estefania PO Box second Medical Yamel L, 1522, trimesterOth Center 700 [place], [employer] and [facility], [facility], conditions compl Suite Center [id number], preg/konucwos19 120, Carlos 120, [place] weeks gestation Renaldo Macario, tel:+3162 [place], [address], [id number]. [place]. tel: tel: [phone] Associates Renaldo Supervision of Mar-0 [place] Referring In Womens other high risk 1-201 [place]. Provider: Health PA, pregnancies, 8 700 Estefania PO Box second Medical Yamel L, 1522, trimesterOth Center 700 [place], [employer] and [facility], [facility], conditions compl Suite Center [id number], preg/dibmprbq51 120, Carlos 120, [place] weeks gestation Renaldo Macario, tel: of [place], [place], pregnancyPersonal [address], [id number]. history of comp [place]. tel: of preg, chldbrth tel: [phone] and the puerp [id number] Associates Renaldo Supervision of Oct- Sob[place] Referring In Womens other high risk [place]. Provider: Health PA, pregnancies, 8 700 Estefania PO Box first Medical Yamel L, 1522, trimesterOth Center 700 [place] [employer] and [facility], [facility], conditions compl Suite Center [id number], preg/teqlqrvt83 120, Carlos 120, [place] weeks gestation Renaldo Macario, tel: of [place], pregnancyPersonal [address], [id number]. history of comp [place]. tel: of preg, chldbrth tel:[phone] and the puerp [id number] Associates Renaldo Supervision of Dec- Sob[place] Referring In Womens other high risk [place]. Provider: Health PA, pregnancies, 7 700 Estefania PO Box first Medical Yamel L, 1522, trimesterOth Center 700 [place] and [facility], [facility], conditions compl Suite Center [id number], preg/chldbrthLess 120, Carlos 120, [place] than 8 weeks Renaldo Macario, tel:+ gestation of [place], pregnancyPersonal [address], [id number]. history of comp [place]. tel: of preg, chldbrth tel: [phone] and the puerp [id number] Associates Renaldo Retained uterin Dec-2 [place] Referring In Womens Ultrasound contracep dev in [place]. Provider: Health PA, , unsp 7 700 Estefania PO Box trimester Medical Yamel L, 1522, Center 700 [place], [facility], [facility], Suite Center [id number], 120, Carlos 120, [place] Renaldo Macario, tel:+ [place], [address], [id number]. [place]. tel: tel:[phone] Judith Macario Retained uterin Dec-1 [place] Referring In Womens contracep dev in [place]. Provider: Health VEL, , unsp 7 700 Estefania PO Box trimesterEncntr Medical Yamel L, 1522, for removal and Center 700 [place], reinsertion of Drive, Medical [place], uterin contracep Suite Center [id number], dev 120, Carlos 120, [place] Renaldo Macario, tel:+ [place], [address], [id number]. [place]. tel: tel: [phone] Judith Macario Encntr for chaplaincy [facility]ima-0 [place] Referring In Womens exam (general) [place]. Provider: Health VEL, (routine) w/o abn 7 700 Estefania PO Box findingsEncntr Medical Yamel L, 1522, screen for Center 700 [place], infections w sexl , [facility] [place], mode of 120, Center , transmissEncntr Renaldo, Carlos 120, [place] screen for Renaldo G[place]DBERG, tel: infections w sexl [id number] [place], mode of , [place]. [id number]. transmissPap tel: tel: Smear Screening, [phone] [facility] Renaldo Encounter for Dec-2 Yamel Referring In Womens insertion of Estefania. Provider: Adam CROWDER, intrauterine 5 700 Estefania PO Box contraceptive Medical Yamel L, 1522, deviceEncounter Center 700 [place], for , [facility] [place], test, result 120, Center [id number], negative Renaldo Carlos 120, [place] Renaldo [place], tel: [phone] [place], , [place]. [id number]. tel: tel: [phone] Judith Macario Pelvic and Dec-0 Yamel Referring In Womens perineal - Estefania. Provider: Health VEL, painEncounter for 5 700 Estefania PO Box removal of Medical Yamel L, 1522, intrauterine Center 700 [place], contraceptive , [facility] [place], deviceEncounter 120, [place] , for removal of Macario, Carlos 120, [place] intrauterine Renaldo GOLDBERG, tel:+[phone] contraceptive [phone] [place], device , [place]. [id number]. tel: tel:+[phone] Judith Macario Dysfunctional Dec-0 Yamel Referring In Womens Ultrasound Uterine Bleeding 9-201 Est[place]. Provider: Adam CROWDER, 5 700 Estefania PO Box Medical Yamel L, 1522, Center [address] Dr Jessica, [facility] [place], 120, Center [id number], Renaldo [facility] 120, [place] Renaldo GOLDBERG, tel:+[phone] [place], , [place]. [id number]. tel: tel:[phone] Judith Macario Dysfunctional Nov-2 Yamel Referring In Womens Uterine 3-201 [place]. Provider: Adam CROWDER, BleedingPelvic 5 700 Estefania PO Box and perineal pain Medical Yamel L, 1522, Center [address], [facility] [place], 120, Center [id number], Renaldo [facility] 120, [place] Renaldo G[place], tel:[phone] [place], , [place]. [id number]. tel: tel:[phone] Judith Macario Dec-3 Yamel Referring In Womens 1-201 [place]. Provider: Adam CROWDER, 4 700 Estefania PO Box Medical Yamel L, 1522, Center [address], [facility] [place], 120, Center [id number], Renaldo [facility] 120, [place] Renaldo GOLDBERG, tel:+[phone] [place], , [place]. [id number]. tel: tel:+[phone] Judith Macario Dec-1 Yamel Referring In Womens 9-201 [place]. Provider: Adam CROWDER, 4 700 Estefania PO Box Medical Yamel L, 1522, Center [address], [facility] [place], 120, Center [id number], Renaldo [facility] 120, [place] Renaldo GOLDBERG, tel:[phone] [place], , [place]. [id number]. tel: tel:[phone] Family History Family Member Diagnosis Age At [...] name Insurance type Covered democrat ID Authorization(s) [facility] [id number] [place] [id number] [facility] [id number] [facility] [id number] [place] [id number] [facility] [id number] Medicaid Social History Type Description Quantity Date [...] Lisa Jacinto BOOKED Future Order: Radiology Order Ultrasound OB Follow-up ([id number]) Ordered Future Order: Radiology Order Transvaginal Pelvic Ultrasound Ordered ([id number]) Future Order: Radiology Order OB Detailed Complete Ultrasound Ordered ([id number]) Date Type Problem Goal Intervention Status Start [...]
--- OUTSIDE RECORDS SUMMARY | 2018-03-26 21:02 | External Medical Summary | Continuity of Care Document ---
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) - (routine) w/o abn findings Encntr screen for infections w sexl mode of transmiss Encntr screen for infections w sexl mode of transmiss Pap Smear Screening, Cervix Encounter for insertion of - intrauterine contraceptive device Encounter for test, result - negative Active GERD Active Procedures Procedure Date Detailed Compled OB Ultrasound, Single Fetus Results Test Name Date and Time Measure Units Reference Range Abnormal Flag Comments Unknown Advance Directives Directive Yes / No Effective Date File Name Unknown Encounters Encounter Practice Location Reason(s) Diagnoses Date Provider Care Team Description For Visit Members Associates Renaldo Supervision of Dec-0 [place] Referring In Womens other high risk [address] [place] [address]. Provider: Health [place], pregnancies, 8 [address] second Medical Yamel L, 1522, trimesterOth Center 700 [facility] [place] and [facility] conditions [facility] [address] [id number], preg/ 120, Carlos 120, [place] weeks gestation Renaldo Macario, tel: [place], [place], [address] pregnancyPersonal [id number], [id number]. history of comp [place]. tel: of preg, chldbrth tel: [phone] and the puerp [phone] Associates Renaldo Supervision of Apr-0 [place] Referring In Womens Ultrasound other high risk [address] [place] [address]. Provider: [facility], pregnancies, 8 700 [address] second Medical Yamel L, 1522, trimesterOth Center 700 [facility] [place] and [address], Medical [place], conditions compl Suite Center [id number], preg/ 120, Carlos 120, [place] weeks gestation Renaldo Macario, [place]: [place], [address], [id number]. [place]. tel: tel: [phone] Associates Renaldo Supervision of Nov- [place] Referring In Womens other high risk [place]. Provider: Health [place], pregnancies, 8 700 [address] second Medical Yamel L, 1522, trimesterOth Center 700 [facility] [place] and [facility], conditions compl Suite Center [id number], preg/[id number] 120, Carlos 120, [place] weeks gestation Renaldo Macario, tel: of [place], [place] pregnancyPersonal [id number], [id number]. history of comp [place]. tel: of preg, chldbrth tel: [phone] and the puerp [phone] Associates Renaldo Supervision of [place] Referring In Womens other high risk [place]. Provider: Health [place], pregnancies, 8 700 [address] first Medical Yamel L, 1522, trimesterOth Center 700 [facility] [place] and [facility] conditions compl Suite Center [id number], preg/gfrakzai46 120, Carlos 120, [place] weeks gestation Renaldo Macario, tel: [place], pregnancyPersonal [id number], [id number]. history of comp [place]. tel: of preg, chldbrth tel: [phone] and the puerp [phone] Associates Renaldo Supervision of Aug- [place] Referring In Womens other high risk [place]. Provider: Health [place], pregnancies, 7 700 [address] PO Box first Medical Yamel L, 1522, trimesterOth Center 700 [facility] [place] and [facility] conditions compl Suite Center [id number], preg/chldbrthLess 120, Carlos 120, [place] than 8 weeks Renaldo Macario, tel: gestation of [place], [place] pregnancyPersonal [id number], [id number]. history of comp [place]. tel: of preg, chldbrth tel: [phone] and the puerp [phone] Associates Renaldo Retained uterin Dec-2 [place] Referring In Womens Ultrasound contracep dev in [place]. Provider: Adam CROWDER, , unsp 7 [address] PO Box trimester Medical Yamel L, 1522, Center [address] [place], [address], Medical [place], Suite [address] [id number], 120, Carlos 120, [place] Renaldo Macario, [place]: [place], [address], [id number]. [place]. tel: tel: [phone] Judith Macario Retained uterin Dec-1 [place] Referring In Womens contracep dev in [place]. Provider: Adam CROWDER, , unsp 7 700 [address] Box trimesterEncntr Medical Yamel L, 1522, for removal and Center 700 [place], reinsertion of Drive, [facility] [place], uterin contracep Suite [address] , dev 120, Carlos 120, [place] Renaldo Macario, [place]: [place], [address], [id number]. [place]. 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 Provider: Adam CROWDER, (routine) w/o abn 7 700 [address] PO Box findingsEncntr Medical Yamel L, 1522, screen for Center 700 [place], infections w sexl , [facility], mode of 120, Center , transmissEncntr Renaldo, Carlos 120, [place] screen for Renaldo [place], tel:2 infections w sexl [phone] [place], mode of , [place]. [id number]. transmissPap tel: tel: Smear Screening, [phone] Cervix Judith Macario Encounter for Dec-2 Yamel Referring In Womens insertion of [place]. Provider: Adam CROWDER, intrauterine 5 [address] Box contraceptive Medical Yamel L, 1522, deviceEncounter Center 700 [place], for , [facility], test, result 120, Center [id number], negative Renaldo, Carlos 120, [place] Renaldo [place], tel:+ [phone] [place], , [place]. [id number]. tel: tel:[phone] Associates [facility] Pelvic and Dec-0 Yamel Referring In Womens perineal 9-201 [place]. Provider: Adam CROWDER, painEncounter for 5 700 [address] Box removal of Medical Yamel L, 1522, intrauterine Center [facility] [place], contraceptive , [facility] [place], deviceEncounter 120, Center [id number], for removal of Macario, Carlos 120, [place] intrauterine Renaldo [place], tel:+[phone] contraceptive [phone] [place], device , [place]. [id number]. tel: tel:[phone] Associates Renaldo Dysfunctional Dec-0 Yamel Referring In Womens Ultrasound Uterine Bleeding 9-201 Est[place]. Provider: Adam CROWDER, 5 700 [address] PO Box Medical Yamel L, 1522, Center [address], [facility] Medical [place], 120, Center [id number], Renaldo, [facility] 120, [place] Renaldo [place], tel:+ [phone] [place], , [place]. [id number]. tel: tel:[phone] Judith Macario Dysfunctional Nov-2 Yamel Referring In Womens Uterine 3-201 [place]. Provider: Adam CROWDER, BleedingPelvic 5 700 [address] PO Box and perineal pain Medical Yamel L, 1522, Center [address], [facility] Medical [place], 120, Center [id number], Renaldo, [facility] 120, [place] Renaldo [place], tel:[phone] [place], , [place]. [id number]. tel: tel:[phone] Associates Renaldo Dec-3 Yamel Referring In Womens 1-201 [place]. Provider: Adam CROWDER, 4 700 [address] PO Box Medical Yamel L, 1522, Center [address], [facility] Medical [place], 120, Center [id number], Renaldo, Carlos 120, [place] Renaldo [place], tel:[phone] [place], , [place]. [id number]. tel: tel:[phone] Judith Macario Yamel Referring In Womens 9-201 [place]. Provider: Adam CROWDER, 700 [facility] Medical Yamel L, 1522, Center 700 [place], , [facility] Medical [place], 120, Center [id number], Renaldo, [facility] 120, [place] Renaldo [place], tel: [phone] [place], , [place]. [id number]. tel: tel:[phone] Family History Family Member Diagnosis Age At [...] Insurance type Covered alliance party ID Authorization(s) [facility] [id number] [place] [id number] [facility] [id number] [facility] [id number] [place] BL [id number] [facility] [id number] Medicaid Social History Type Description Quantity Date [...] Lisa Jacinto BOOKED Future Order: Radiology Order OB Detailed Complete Ultrasound Ordered ([id number]) Future Order: Radiology Order Transvaginal Pelvic Ultrasound Ordered ([id number]) Date Type Problem Goal Intervention Status Start [...]
--- OUTSIDE RECORDS SUMMARY | 2018-03-26 21:02 | External Medical Summary | Continuity of Care Document ---
:1990 Author Organization [facility] Address [address] [place] [address] [phone] Phone Support Name Relationship Address Phone Lisandro Jacinto [address] [place] [address] [phone] [place] [address] Allergies, Adverse Reactions, Alerts Substance Reaction Severity [...] of preg, - chldbrth and the puerp Less than 8 weeks gestation of - Dysfunctional Uterine Bleeding - Dysfunctional Uterine Bleeding Pelvic and perineal pain Retained uterin contracep dev in , unsp trimester Encntr for removal and reinsertion of - uterin contracep dev Retained uterin contracep dev in - , unsp trimester Pelvic and perineal pain Encounter for removal of intrauterine - contraceptive device Encounter for removal of intrauterine contraceptive device 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) w/o abn findings Encntr screen for infections w sexl mode of transmiss Encntr screen for infections w sexl mode of transmiss Pap Smear Screening, Cervix Encounter for insertion of - intrauterine contraceptive device Encounter for test, result - negative Active GERD Active Procedures Procedure Date Initial OB Visit No Charge Results Test Name Date and Time Measure Units Reference Range Abnormal Flag Comments Panel Description: OBSTETRIC PANEL WHITE BLOOD CELL 11.7 Thousand/uL 3.8-10.8 H COUNT 16:36:00 RED BLOOD CELL 5.00 Million/uL 3.80-5.10 N COUNT 16:36:00 HEMOGLOBIN 13.3 g/dL 11.7-15.5 N 16:36:00 HEMATOCRIT 41.3 % 35.0-45.0 N 16:36:00 MCV 82.6 fL 80.0-100.0 N 16:36:00 MCH 26.6 pg 27.0-33.0 L 16:36:00 MCHC 32.2 g/dL 32.0-36.0 N 16:36:00 RDW 14.1 % 11.0-15.0 N 16:36:00 PLATELET COUNT 360 Thousand/uL 140-400 N 16:36:00 MPV 10.9 fL 7.5-12.5 N 16:36:00 ABSOLUTE 8553 cells/uL 4198-7116 H NEUTROPHILS 16:36:00 ABSOLUTE 2434 cells/uL 850-3900 N LYMPHOCYTES 16:36:00 ABSOLUTE 608 cells/uL 200-950 N MONOCYTES 16:36:00 ABSOLUTE 35 cells/uL 15-500 N EOSINOPHILS 16:36:00 ABSOLUTE 70 cells/uL 0-200 N BASOPHILS 16:36:00 NEUTROPHILS 73.1 % N 16:36:00 LYMPHOCYTES 20.8 % N 16:36:00 MONOCYTES 5.2 % N 16:36:00 EOSINOPHILS 0.3 % N 16:36:00 BASOPHILS 0.6 % N 16:36:00 ANTIBODY SCREEN, NO ANTIBODIES N RBC W/REFL ID, 16:36:00 DETECTED Reference range TITER AND AG No antibodies detected This assay is a screening test for the detection of red blood cell antibodies. The test is not to be used for pretransfusion screening or for the medical management of an alloimmunized . ABO GROUP O 16:36:00 RH TYPE RH(D) 16:36:00 POSITIVE RPR (DX) W/REFL NON-REACTIVE NON-REACTIV N TITER AND 16:36:00 E CONFIRMATORY TESTING HEPATITIS B NON-REACTIVE NON-REACTIV N SURFACE ANTIGEN 16:36:00 E RUBELLA ANTIBODY <0.90 index L Index (IGG) 16:36:00 Interpretation ----- <0.90 Not consistent with Immunity 0.90-0.99 Equivocal > or=1.00 Consistent with Immunity The presence of rubella IgG antibody suggests immunization or past or current infection withrubella virus.Test performed at [facility] [id number] [place] [address]Xpmxeto r: AXEL CRESPO DO,MPH Panel Description: HIV 1/2 ANTIGEN/ANTIBODY,FOURTH GENERATION W/RFL HIV NON-REACTIVE NON-REACTIVE N HIV-1 antigen and HIV-1/HIV- 2 antibodies were AG/AB, 16:36:00 notdetected. There is no laboratory evidence of 4TH GEN HIVinfection. PLEASE NOTE: This information has been disclosed toyou from records whose confidentiality may beprotected by state law. If your state requires suchprotection, then the state law prohibits you frommaking any further disclosure of the informationwithout the specific written consent of the personto whom it pertains, or as otherwise permitted by law.A general authorization for the release of medical orother information is NOT sufficient for this purpose. For additional information please refer tohttp://education.ShelfFlip/faq/SVB655(This link is being provided for informational/educational purposes only.) The performance of this assay has not been clinicallyvalidated in patients less than 2 years old. Test performed at [facility] [id number] [place] [address]Hhdgroxg: AXEL CRESPO DO,MPH Panel Description: Thyrotropin [Units/volume] in Serum or Plasma TSH 16:36:00 1.94 mIU/L N Reference Range > or=20 Years 0.40-4.50 Ranges First trimester 0.26-2.66 Second trimester 0.55-2.73 Third trimester 0.43-2.91Test performed at [facility] [id number] [place] [address]Duzbazsq: AXEL CRESPO DO,MPH Panel Description: Hemoglobin A1c/Hemoglobin.total in Blood HEMOGLOBIN A1c 5.0 % of total <5.7 N For the purpose of screening 16:36:00 Hgb for the presence ofdiabetes: <5.7% Consistent with the absence of diabetes5.7-6.4% Consistent with increased risk for diabetes (prediabetes)> or=6.5% Consistent with diabetes This assay result is consistent with a decreased riskof diabetes. Currently, no consensus exists regarding use ofhemoglobin A1c for diagnosis of diabetes in children. According to [place] Diabetes Association (ADA)guidelines, hemoglobin A1c <7.0% represents optimalcontrol in non- diabetic patients. Differentmetrics may apply to specific patient populations. Standards of Medical Care in Diabetes(ADA). REPORT COMMENT:FASTING:NOTest performed at [facility] [id number] [place] [address]Rhfxmvey: AXEL CRESPO DO,MPH Panel Description: Bacteria identified in Urine by Culture CULTURE, URINE, SEE NOTE CULTURE, URINE, ROUTINE MICRO ROUTINE 16:35:00 NUMBER: [id number] TEST STATUS: FINAL SPECIMEN SOURCE: URINE SPECIMEN QUALITY: ADEQUATE RESULT: Multiple organisms present, each less than 10,000 CFU/mL. These organisms, commonly found on external and internal genitalia, are considered to be colonizers. No further testing performed.REPORT COMMENT:RFASTING:UNKNOWNTest performed at [facility] [id number] [place] [address]Bspcfomx: AXEL CRESPO DO,MPH Advance Directives Directive Yes / No Effective Date File Name Unknown Encounters Encounter Practice Location Reason(s) Diagnoses Date Provider Care Team Description For Visit Members Judith Macario Supervision of [place] Referring In Womens other high risk 8-201 [place]. Provider: [facility], pregnancies, 7 700 [address]efania Box [facility] Medical Yamel L, 1522, [facility] [address] [place], diseases and [facility], conditions compl [address] [id number], preg/chldbrthPer 120, Carlos 120, [place] alpa history of Renaldo Macario, tel: comp [place]ldbrth [place] [address], [id number]. puerpLess than 8 [place]. tel: weeks gestation tel: [phone] of [phone] Associates Renaldo Retained uterin Dec-2 [place] Referring In Womens Ultrasound contracep dev in [place]. Provider: Health VEL, , unsp 7 700 [address]efania PO Box trimester Medical Yamel L, 1522, Center [address] [place], [facility], Suite Center [id number], 120, Carlos 120, [place] Renaldo Macario, tel: [place], [address], [id number]. [place]. tel: tel: [phone] Judith Macario Retained uterin Dec-1 [place] Referring In Womens contracep dev in [place]. Provider: Adam CROWDER, , unsp 7 700 [address]ef[address] PO Box trimesterEncntr Medical Yamel L, 1522, for removal and Center [address] [place], reinsertion of [facility], uterin contracep Suite [address] [id number], dev 120, Carlos 120, [place] Renaldo Macario, tel: [place], [address], [id number]. [place]. 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 Provider: Adam CROWDER, (routine) w/o 7 700 [address]ef[address] PO Box abn Medical Yamel L, 1522, findingsEncntr Center [address] [place], screen for [place] Lam, infections w 120, Center [id number], sexl mode of Carlos Macario 120, [place] transmissEncntr Renaldo [place], tel: screen for [phone] [place], infections w , [place]. [id number]. sexl mode of tel: tel: transmissPap [phone] Smear Screening, Cervix Associates Renaldo Encounter for Dec-2 Yamel Referring In Womens insertion of 1-201 Estef[place]. Provider: Health VEL, intrauterine 5 700 [address] PO Box contraceptive Medical Yamel L, 1522, deviceEncounter Center [address] [place] [address], for , [facility] [place], test, result 120, Center [id number], negative Macario, Carlos 120, [place] Renaldo [place], tel:[phone] [place], , [place]. [id number]. tel: tel:[phone] Associates Renaldo Pelvic and Dec-0 Yamel Referring In Womens perineal 9-201 [place]. Provider: Adam CROWDER, painEncounter 5 700 [address] PO Box for removal of Medical Yamel L, 1522, intrauterine Center [address] [place] [address], contraceptive , [facility] [place], deviceEncounter 120, Center , for removal of Macario, Carlos 120, [place] intrauterine Renaldo [place], tel:+[phone] contraceptive [phone] [place], device , [place]. [id number]. tel: tel:+-[phone] Associates Renaldo Dysfunctional Dec-0 Yamel Referring In Womens Ultrasound Uterine Bleeding 9-201 [place]. Provider: Adam CROWDER, 5 700 [address] PO Box Medical Yamel L, 1522, Center [facility] [address], [email or web address] Medical [place], 120, Center [id number], Macario, Carlos 120, [place] Renaldo [place], tel:+ [phone] [place], , [place]. [id number]. tel: tel:[phone] Associates [facility]do Dysfunctional Nov-2 Yamel Referring In Womens Uterine 3-201 [place]. Provider: Adam CROWDER, BleedingPelvic 5 700 [address] PO Box and perineal Medical Yamel L, 1522, pain Center [facility] [address] Jessica, [facility] [[email or web address] Medical [place], 120, Center [id number], Renaldo, Carlos 120, [place] Renaldo [place], tel:[phone] [place], , [place]. [id number]. tel: tel:[phone] Judith Macario Aug-3 Yamel Referring In Womens 1-201 [place]. Provider: Health [place], 4 700 [address] PO Box Medical Yamel L, 1522, Center [address], [facility], 120, Center [id number], Renaldo [facility] [[email or web address] 120, [place] Renaldo [place], tel: [phone] [place], , [place]. [id number]. tel: tel:[phone] Judith Macario Aug- Yamel Referring In Womens 9-201 [place]. Provider: Adam CROWDER, 4 700 [address]ef[address] PO Box Medical Yamel L, 1522, Center [address], [facility] [place], 120, [place] [id number], [facility], Renaldo [place], tel: [phone] [place], , [place]. [id number]. tel: tel: [phone] Family History Family Member Diagnosis Age At [...] older Payers Payer name Insurance type Covered green party ID Authorization(s) [facility] [id number] [place] BL [id number] [facility] BL [id number] [facility] [id number] [place] [id number] [facility] [id number] Medicaid Social History Type Description Quantity Date Captured Alcohol Use Details No Caffeine Use Details Unknown Tobacco Use Status Never smoked tobacco Smoking Status Never smoker Non-Smoking Tobacco Use : No Details Available : No Details Available Details Vital Signs Date / Height Weight BMI Pulse Blood Temperature Respiratory Body Head BMI Time: Rate Pressure Rate Surface Circumference percentile Area 236.70 37.6 /2017 lbs 3 mm[Hg] 3:58 kg/m PM eter (2) Chief Complaint And Reason For Visit Unknown Chief Complaint And Reason For Visit Reason For Referral Reason For Referral Unknown Plan Of Care Date Type Action Status Goal Lifestyle education regarding completed diet Goal Lifestyle education regarding completed diet Appointment Lisa Jacinto BOOKED Appointment Lisa Jacinto BOOKED Future Order: Radiology Order Transvaginal Pelvic Ultrasound Ordered ([id number]) Date Type Problem Goal Intervention Status Start [...]
--- OUTSIDE RECORDS SUMMARY | 2018-03-26 21:02 | External Medical Summary | Continuity of Care Document ---
:1990 Author Organization [facility] Address [address] [place] [address] [phone] Phone Support Name Relationship Address Phone Lisandro Jacinto [address] [address] [phone] [place] [address] Allergies, Adverse Reactions, Alerts Substance Reaction Severity Status No Known Drug Allergies Unknown Active Medications Medication Instructions Dosage Effective Dates Status Comments (start - stop) Mirena 20 mcg/24 hr (5 - - No Longer years) intrauterine Active device Problems Condition Effective Dates (start - stop) Clinical Status Retained uterin contracep dev in , unsp trimester Encntr for removal and reinsertion of - uterin contracep dev Encounter for insertion of - intrauterine contraceptive device Encounter for test, result - negative Dysfunctional Uterine Bleeding - Dysfunctional Uterine Bleeding Pelvic and perineal pain Pelvic and perineal pain Encounter for removal of intrauterine - contraceptive device Encounter for removal of intrauterine contraceptive device 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) - (routine) w/o abn findings Encntr screen for infections w sexl mode of transmiss Encntr screen for infections w sexl mode of transmiss Pap Smear Screening, Cervix Active GERD Active Procedures Procedure Date Remove intrauterine device (IUD) OB US < 14 WKS, SINGLE FETUS Office/outpatient visit,est, mod Results Test Name Date and Time Measure Units Reference Range Abnormal Flag Comments Unknown Advance Directives Directive Yes / No Effective Date File Name Unknown Encounters Encounter Practice Location Reason(s) Diagnoses Date Provider Care Team Description For Visit Members Office/outpat [facility]ario generic Retained uterin Dec-1 [place] Referring ient In Womens (chief contracep dev in Mic. Provider: visit,est, Health VEL, complaint) , unsp 7 700 Estef[address] mod [address] Box trimesterEncntr Medical Yamel L, 1522, for removal and Center [address] [place], reinsertion of Drive, Medical ASHLYN, uterin contracep Suite Center [id number], dev 120, Carlos 120, [place] Renaldo Macario, tel: [place], [address], [id number]. [place]. tel: tel: [phone] Judith Macario Encntr for plastic sewer Hima-0 [place] Referring In Womens exam (general) Lindsey. Provider: Adam CROWDER, (routine) w/o 7 700 Estefania PO Box abn Medical Yamel L, 1522, findingsEncntr Center [address] [place], screen for Carlos Lam, infections w 120, Center [id number], sexl mode of Renaldo Carlos 120, [place] transmissEncntr Renaldo [place], tel: screen for [id number] [place], infections w , [place]. [id number]. sexl mode of tel: tel: transmissPap [phone] Smear Screening, Cervix [facility] Renaldo Encounter for Dec-2 Yamel Referring In Womens insertion of Estefania. Provider: Adam CROWDER, intrauterine 5 700 Estefania PO Box contraceptive Medical Yamel L, 1522, deviceEncounter Center [address] [place], [place] [address]ta, for Carlos Lam, test, result 120, Center [id number], negative Renaldo Carlos 120, [place] Renaldo [place], tel: [phone] [place], , [place]. [id number]. tel: tel: [phone] Judith Macario Pelvic and Dec-0 Yamel Referring In Womens perineal - Estefania. Provider: Health VEL, painEncounter 5 700 Estefania PO Box for removal of Medical Yamel L, 1522, intrauterine Center [address] [place], contraceptive Carlos Lam, deviceEncounter 120, Center [id number], for removal of Macario, Carlos 120, [place] intrauterine ASHLYN, Renaldo, tel:+ contraceptive [phone] [place], device , [place]. [id number]. tel: tel:+[phone] Associates Renaldo Dysfunctional Dec-0 Yamel Referring In Womens Ultrasound Uterine Bleeding 9-201 Estefania. Provider: Adam CROWDER, 5 700 [address]ef[address] PO Box Medical Yamel L, 1522, Center [address], [facility] Medical [place], 120, Center [id number], Renaldo, Carlos 120, [place] KSRenaldo, tel:[phone] [place], , [place]. [id number]. tel: tel:[phone] Associates Renaldo Dysfunctional Nov-2 Yamel Referring In Womens Uterine 3-201 Estefania. Provider: Adam CROWDER, BleedingPelvic 5 700 Estefania PO Box and perineal Medical Yamel L, 1522, pain Center [address], [facility] Medical [place], 120, Center [id number], Renaldo, [facility] 120, [place] KSRenaldo, tel:[phone] [place], , [place]. [id number]. tel: tel:+[phone] Associates Renaldo Dec-3 Yamel Referring In Womens 1-201 Estefania. Provider: Adam CROWDER, 4 700 Estefania PO Box Medical Yamel L, 1522, Center [address], [facility] Medical [place], 120, Center [id number], Renaldo, [facility] 120, [place] Renaldo [place], tel:[phone] [place], , [place]. [id number]. tel: tel:[phone] Judith Macario Dec-1 Yamel Referring In Womens 9-201 Estefania. Provider: Adam CROWDER, 4 700 Estefania PO Box Medical Yamel L, 1522, Center [address], [facility] Medical [place], 120, Center [id number], Renaldo, [facility] 120, [place] Renaldo [place], tel:[phone] [place], , [place]. [id number]. tel: tel: [phone] Family History Family Member Diagnosis Age At [...] name Insurance type Covered republican ID Authorization(s) [facility] [id number] [place] [id number] [facility] [id number] [facility] [id number] [place] [id number] [facility] [id number] Medicaid Social History Type Description Quantity Date Captured Alcohol Use Details No Caffeine Use Details Unknown Tobacco Use Status Never smoked tobacco Smoking Status Never smoker Vital Signs Date / Height Weight BMI Pulse Blood Temperature Respiratory Body Head BMI Time: Rate Pressure Rate Surface Circumference percentile Area 236.50 88 143/85 -2017 lbs /min mm[Hg] 9:17 AM Chief Complaint And Reason For Visit Most recent encounter only, dated '08/18/2017 09:45'. generic (chief complaint). Description: Positive test with IUD in place. Pt reports checking for string occasionaly but has not felt them in some time. She denies bleeding or pain. Desires tocontinue with . LMP about six weeks ago. Bola had consitent menstrual cycles with IUD. Has not been on PNV. Miniaml N/V and breast tenderness. Reason For Referral Reason For Referral Unknown Plan Of Care Date Type Action Status Goal Lifestyle education regarding completed diet Goal Lifestyle education regarding completed diet Appointment Lisa Jacinto BOOKED Appointment Lisa Jacinto BOOKED Appointment Lisa Jacinto BOOKED Future Order: Radiology Order Transvaginal Pelvic Ultrasound Ordered ([id number]) Date Type Problem Goal Intervention Status Start Date Unknown. History Of Present Illness Encounter Date Complaint History Of Present Illness generic Positive test with IUD in place. Pt reports checking for string occasionaly but has not felt them in some time. She denies bleeding or pain. Desires to continue with . LMP about six weeks ago. HJas had consitent menstrual cycles with IUD. Has not been on PNV. Miniaml N/V and breast tenderness. Functional Status Encounter Date Functional Assessment Cognitive Assessment Unknown Medications Administered Medication Instructions Dosage Effective Dates (start - stop) Status Comments Drug Treatment Unknown Instructions Date Instruction Additional Information Lifestyle education regarding diet Related to Body mass index 35.0-35.9 Giving encouragement to exercise Related to Body mass index 35.0- 35.9 Giving encouragement to exercise Related to Body mass index 35.0- 35.9 Lifestyle education regarding diet Related to Body mass index 35.0-35.9
--- OUTSIDE RECORDS SUMMARY | 2018-03-26 21:02 | External Medical Summary | Continuity of Care Document ---
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) - (routine) w/o abn findings Encntr screen for infections w sexl mode of transmiss Encntr screen for infections w sexl mode of transmiss Pap Smear Screening, Cervix Encounter for insertion of - intrauterine contraceptive device Encounter for test, result - negative Active GERD Active Procedures Procedure Date OB Visit No Charge Results Test Name Date and Time Measure Units Reference Range Abnormal Flag Comments Unknown Advance Directives Directive Yes / No Effective Date File Name Unknown Encounters Encounter Practice Location Reason(s) Diagnoses Date Provider Care Team Description For Visit Members Judith Macario Supervision of Hima-2 [place] Referring In Womens other high risk [address] [place] [address]. Provider: Adam CROWDER, pregnancies, 8 700 [place] PO Box third Medical [place] L, 1522, trimesterAbnormal Center [address] [place], [facility], complicating Suite Center , pregnancyOth 120, Drive nilson and Renaldo, [address], tel:+2 conditions compl Renaldo [place], preg/chldbrthPers [address], [place], [address]. onal history of [place]. tel: comp of preg, tel: [phone] marylin and the [phone] puerp [facility] Renaldo Supervision of Hima-2 [place] Referring In Womens Ultrasound other high risk [address] [place] [address]. Provider: Adam CROWDER, pregnancies, 8 700 Estefania PO Box third [id number] Medical Yamel L, 1522, weeks gestation Center [address] [place], of [facility], Suite Center [id number], 120, Carlos 120, [place] Renaldo Macario, tel:+ [place], [address], [id number]. [place]. tel: tel: [phone] Judith Macario Supervision of Hima-0 [place] Referring In Womens other high risk [address] [place] [address]. Provider: Adam CROWDER, pregnancies, 8 700 Estefania PO Box third Medical Yamel L, 1522, trimesterAbnormal Center [address] [place], [facility], complicating Suite Center [id number], pregnancyOth 120, Carlos 120, [place] Sky Macario, tel: conditions compl [place], preg/chldbrthPers [address], [id number]. onal history of [place]. tel: comp of preg, tel: [phone] chldbrth and the [id number] puerp [facility] Renaldo Supervision of January-2 [place] Referring In Womens other high risk 4-201 [place]. Provider: Health PA, pregnancies, 8 700 Estefania PO Box third Medical Yamel L, 1522, trimesterOth Center 700 [facility] [employer] and [facility], conditions compl Suite Center [id number], preg/[id number] 120, Carlos 120, [place] weeks gestation Renaldo Macario, tel: of [place], pregnancyPersonal [phone], [id number]. history of comp [place]. tel: of preg, chldbrth tel: [phone] and the puerp [id number] Associates Renaldo Supervision of January-2 [place] Referring In Womens Ultrasound other high risk - [place]. Provider: Health PA, pregnancies, 8 700 Estefania PO Box third [id number] Medical Yamel L, 1522, weeks gestation Center [address] [place], of [facility], pregnancyPersonal Suite Center [id number], history of comp 120, Carlos 120, [place] of preg, chldbrth Renaldo Macario, tel: [place], [address], [id number]. [place]. tel: tel: [phone] Associates Renaldo Supervision of May-0 [place] Referring In Womens other high risk 3-201 [place]. Provider: Health PA, pregnancies, 8 700 Estefania PO Box second Medical Yamel L, 1522, trimesterOth Center [address] [place] [employer] and [facility], conditions compl Suite Center [id number], preg/[id number] 120, Carlos 120, [place] weeks gestation Renaldo Macario, tel:2 of [place], pregnancyPersonal [address], [id number]. history of comp [place]. tel: of preg, chldbrth tel: [phone] and the puerp [id number] Associates Renaldo Supervision of Apr-0 [place] Referring In Womens other high risk 5-201 [place]. Provider: Health PA, pregnancies, 8 700 Estefania PO Box second Medical Yamel L, 1522, trimesterOth Center [address] [place], [employer] and Drive, Medical [place], conditions compl Suite Center [id number], preg/[id number] 120, Carlos 120, [place] weeks gestation Renaldo Macario, tel:+ [place], pregnancyPersonal [phone], [id number]. history of comp [place]. tel: of preg, chldbrth tel: [phone] and the puerp [phone] Associates Renaldo Supervision of Apr-0 [place] Referring In Womens Ultrasound other high risk 5- [place]. Provider: Health PA, pregnancies, 8 700 Estefania PO Box second Medical Yamel L, 1522, trimesterOth Center [address] [place], [employer] and [facility], [facility] [place], conditions compl Suite Center [id number], preg/[id number] 120, Carlos 120, [place] weeks gestation Renaldo Macario, tel: [place], [address], [id number]. [place]. tel: tel: [phone] Associates Renaldo Supervision of Mar-0 [place] Referring In Womens other high risk -201 [place]. Provider: Health PA, pregnancies, 8 700 Estefania PO Box second Medical Yamel L, 1522, trimesterOth Center [address] [place], [employer] and Drive, [facility] [place], conditions compl Suite Center [id number], preg/[id number] 120, Carlos 120, [place] weeks gestation Renaldo Macario, tel:2 of [place], [place], pregnancyPersonal [address], [id number]. history of comp [place]. tel: of preg, chldbrth tel: [phone] and the puerp [id number] Associates Renaldo Supervision of Feb-0 [place] Referring In Womens other high risk 1-201 [place]. Provider: Health PA, pregnancies, 8 700 Estefania PO Box first Medical Yamel L, 1522, trimesterOth Center [address] [place], [employer] and Drive, Medical [place], conditions compl Suite Center [id number], preg/[id number] 120, Carlos 120, [place] weeks gestation Renaldo Macario, tel: of [place], pregnancyPersonal [phone], [id number]. history of comp [place]. tel: of preg, chldbrth tel: [phone] and the puerp [phone] Associates Renaldo Supervision of Dec-2 [place] Referring In Womens other high risk [place]. Provider: Health PA, pregnancies, 7 700 Estefania PO Box first Medical Yamel L, 1522, trimesterOth Center [address] [place], [facility] and [facility], conditions compl Suite Center [id number], preg/chldbrthLess 120, Carlos 120, [place] than 8 weeks Renaldo Macario, tel: gestation of [place], pregnancyPersonal [address], [id number]. history of comp [place]. tel: of preg, chldbrth tel: [phone] and the puerp [id number] Associates Renaldo Retained uterin Dec-2 [place] Referring In Womens Ultrasound contracep dev in [place]. Provider: Adam CROWEDR, , unsp 7 700 Estefania PO Box trimester Medical Yamel L, 1522, Center 700 [facility], Suite Center [id number], 120, Carlos 120, [place] Renaldo Macario, tel: [place], [address], [id number]. [place]. tel: tel: [phone] Judith Macario Retained uterin Dec-1 [place] Referring In Womens contracep dev in [place]. Provider: Health VEL, , unsp 7 700 Estefania PO Box trimesterEncntr Medical Yamel L, 1522, for removal and Center [address] [place], reinsertion of [facility], uterin contracep Suite Center [id number], dev 120, Carlos 120, [place] Renaldo Macario, tel: [place], [address], [id number]. [place]. 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 Provider: Adam CROWDER, (routine) w/o abn 7 700 Estefania PO Box findingsEncntr Medical Yamel L, 1522, screen for Center [address] [place], infections w sexl , [facility] Olman [place], mode of 120, Center , transmissEncntr Macario, Carlos 120, [place] screen for Renaldo [place], tel:+[phone] infections w sexl [id number] [place], mode of , [place]. [id number]. transmissPap tel: tel:+316 Smear Screening, [phone] Cervix [facility] Renaldo Encounter for Dec-2 Yamel Referring In Womens insertion of Estefania. Provider: Adam CROWDER, intrauterine 5 700 Estefania PO Box contraceptive Medical Yamel L, 1522, deviceEncounter Center [address] [place], for , [facility] ASHLYN, test, result 120, Center , negative Macario, Carlos 120, [place] Renaldo [place], tel:[phone] [place], , [place]. [id number]. tel: tel:+[phone] Associates Renaldo Pelvic and Dec-0 Yamel Referring In Womens perineal - Estefania. Provider: Adam CROWDER, painEncounter for 5 700 Estefania PO Box removal of Medical Yamel L, 1522, intrauterine Center [address] [place], contraceptive , Carlos Olman [place], deviceEncounter 120, Center , for removal of Macario, Carlos 120, [place] intrauterine Renaldo [place], tel:+[phone] contraceptive [phone] [place], device , [place]. [id number]. tel: tel:+[phone] Associates Renaldo Dysfunctional Dec-0 Yamel Referring In Womens Ultrasound Uterine Bleeding - Estefania. Provider: Adam CROWDER, 5 700 Estefania PO Box Medical Yamel L, 1522, Center [address] [place], Carlos Lam Medical [place], 120, Center [id number], Renaldo, Carlos 120, [place] Renaldo [place], tel:+[phone] [place], , [place]. [id number]. tel: tel:+[phone] Associates Renaldo Hendrickson Yamel Referring In Womens Uterine 3-201 Estefania. Provider: Adam CROWDER, BleedingPelvic 5 700 Estefania PO Box and perineal pain Medical Yamel L, 1522, Center [address], [facility] Medical [place], 120, Center [id number], Renaldo, [facility] 120, Renaldo [place], tel:+[phone] [place], , [place]. [id number]. tel: tel:+[phone] Associates Renaldo Aug-3 Yamel Referring In Womens 1-201 Estefania. Provider: Adam CROWDER, 4 700 Estefania PO Box Medical Yamel L, 1522, Center [address], [facility] Medical [place], 120, Center [id number], Renaldo, [facility] 120, Renaldo [place], tel:+[phone] [facility] , [place]. [id number]. tel: tel:+[phone] Judith Macario Yamel Referring In Womens 9-201 Estefania. Provider: Adam CROWDER, 4 700 Estefania PO Box Medical Yamel L, 1522, Center [address] Dr Jessica, [facility] Medical [place], 120, Center [id number], Renaldo, [facility] 120, [place] Renaldo [place], tel:+[phone] [place], , [place]. [id number]. tel: tel:+[phone] Family History Family Member Diagnosis Age At [...] name Insurance type Covered republican ID Authorization(s) [facility] [id number] [place] [id number] [facility] [id number] [place] [id number] [facility] [id number] [place] [id number] [facility] [id number] Medicaid Social History Type Description Quantity Date Captured Alcohol Use Details No Caffeine Use Details Unknown Tobacco Use Status Never smoked tobacco Smoking Status Never smoker Vital Signs Date / Height Weight BMI Pulse Blood Temperature Respiratory Body Head BMI Time: Rate Pressure Rate Surface Circumference percentile Area 38.2 -2018 2 4:45 kg/m PM eter (2) 239.90 38.1 131/80 -2018 lbs 4 mm[Hg] 4:56 kg/m PM eter (2) Chief Complaint And [...] Jacinto BOOKED Appointment Lisa Jacinto BOOKED Appointment Lucrecia Jacintorice BOOKED Appointment Lisa Jacinto BOOKED Appointment Lisa Jacinto BOOKED Appointment Lisa Jacinto BOOKED Appointment Lisa Jacinto BOOKED Future Order: Radiology Order Transvaginal Pelvic Ultrasound Ordered ([id number]) Future Order: Radiology Order OB Detailed Complete Ultrasound Ordered ([id number]) Future Order: Radiology Order Ultrasound OB Follow-up ([id number]) Ordered Future Order: Radiology Order Ultrasound OB Follow-up ([id number]) Ordered Date Type Problem Goal Intervention Status [...]
--- OUTSIDE RECORDS SUMMARY | 2018-03-26 21:02 | External Medical Summary | Continuity of Care Document ---
:1990 Author Organization [facility] Address [address] [place] [address] [phone] Phone Support Name Relationship Address Phone Lisandro Jacinto [address] [place] [address] [phone] [place] [address] Allergies, Adverse Reactions, Alerts Substance Reaction Severity Status No Known Drug Allergies Unknown Active Medications Medication Instructions Dosage Effective Dates (start - stop) Status Comments Drug Treatment Unknown Problems Condition Effective Dates (start - stop) Clinical Status Retained uterin contracep dev in , unsp trimester Encntr for removal and reinsertion of - uterin contracep dev Dysfunctional Uterine Bleeding - Dysfunctional Uterine Bleeding Pelvic and perineal pain Supervision of other high risk - pregnancies, first trimester Oth diseases and conditions compl - preg/chldbrth Less than 8 weeks gestation of - Personal history of comp of preg, - chldbrth and the puerp Retained uterin contracep dev in - , unsp trimester Pelvic and perineal pain Encounter for removal of intrauterine - contraceptive device Encounter for removal of intrauterine contraceptive device 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 surgical 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 exam (general) - (routine) w/o abn findings Encntr screen for infections w sexl mode of transmiss Encntr screen for infections w sexl mode of transmiss Pap Smear Screening, Cervix Encounter for insertion of - intrauterine contraceptive device Encounter for test, result - negative Active GERD Active Procedures Procedure Date Remove intrauterine device (IUD) OB US < 14 WKS, SINGLE FETUS Office/outpatient visit,est, mod CBC, Automated Hemogram Results Test Name Date and Time Measure Units Reference Range Abnormal Flag Comments Panel Description: CBC (INCLUDES DIFF/PLT) WHITE BLOOD CELL 10.6 Thousand/uL 3.8-10.8 N COUNT 09:57:00 RED BLOOD CELL 4.94 Million/uL 3.80-5.10 N COUNT 09:57:00 HEMOGLOBIN 13.2 g/dL 11.7-15.5 N 09:57:00 HEMATOCRIT 40.5 % 35.0-45.0 N 09:57:00 MCV 82.0 fL 80.0-100.0 N 09:57:00 MCH 26.7 pg 27.0-33.0 L 09:57:00 MCHC 32.6 g/dL 32.0-36.0 N 09:57:00 RDW 13.9 % 11.0-15.0 N 09:57:00 PLATELET COUNT 352 Thousand/uL 140-400 N 09:57:00 MPV 10.7 fL 7.5-12.5 N 09:57:00 ABSOLUTE 7653 cells/uL 4248-0862 N NEUTROPHILS 09:57:00 ABSOLUTE 2173 cells/uL 850-3900 N LYMPHOCYTES 09:57:00 ABSOLUTE MONOCYTES 625 cells/uL 200-950 N 09:57:00 ABSOLUTE 74 cells/uL 15-500 N EOSINOPHILS 09:57:00 ABSOLUTE BASOPHILS 74 cells/uL 0-200 N 09:57:00 NEUTROPHILS 72.2 % N 09:57:00 LYMPHOCYTES 20.5 % N 09:57:00 MONOCYTES 5.9 % N 09:57:00 EOSINOPHILS 0.7 % N 09:57:00 BASOPHILS 0.7 % N Test performed at 09:57:00 [facility] [id number] [place] [address]Ilpfckds : AXEL CRESPO DO,MPH Panel Description: Choriogonadotropin.beta subunit [Units/volume] in Serum or Plasma HCG, TOTAL, QN 09:57:00 5025 mIU/mL H Reference RangeNon or premenopausal <5Postmenopausal <10 Values from different assay methods may vary.The use of this assay to monitor or to diagnose patients with cancer or any condition unrelatedto has not been cleared or approved bythe FDA or the distribution sales manager of the assay.Test performed at [facility] [id number] [place] [address]Drsblcxf: AXEL CRESPO DO,MPH Advance Directives Directive Yes / No Effective Date File Name Unknown Encounters Encounter Practice Location Reason(s) Diagnoses Date Provider Care Team Description For Visit [facility] Supervision of [place] Referring In Womens other high risk [place]. Provider: Adam CROWDER, pregnancies, 7 700 [address] first Olman [place]ons, 1522, trimesterOth Center [address] [place] [address] and [facility], conditions compl Suite Center [id number], preg/chldbrthLess 120, [place] 120, [place] than 8 weeks Renaldo Macario, tel: gestation of [place], pregnancyPersonal [id number], [id number]. history of comp [place]. tel: of preg, chldbrth tel: [phone] and the puerp [id number] [facility] Retained uterin Dec-2 [place] Referring In Womens Ultrasound contracep dev in [place]. Provider: Adam CROWDER, , unsp 7 700 [address]efania PO Box trimester Medical Yamel L, 1522, Center [address] [place], [facility], Suite Center [id number], 120, [place] 120, [place] Renaldo Macario, tel: [place], [address], [id number]. [place]. tel: tel: [phone] Office/outpa [facility] oh Retained uterin Dec- [place] Referring tient In Womens (chief contracep dev in [place]. Provider: visit,est, Adam CROWDER, complaint) , unsp 7 700 [address]efania mod PO Box trimesterEncntr Medical Yamel L, 1522, for removal and Center [address] [place], reinsertion of Drive, [facility] [place], uterin contracep Suite Center [id number], dev 120, [place] 120, [place] Renaldo Macario, tel: [place], [address], [id number]. [place]. tel: tel: [phone] Judith Macario Encntr for surgical aide [facility] Referring In Womens exam (general) 1-201 [place]. Provider: Health PA, (routine) w/o abn 7 700 [address]ef[address] PO Box findingsEncntr Medical Yamel L, 1522, screen for Center [address] [place], infections w sexl , [facility], mode of 120, Center , transmissEncntr Renaldo, [place] 120, [place] screen for Renaldo [place], tel: infections w sexl [phone] [place], mode of , [place]. [id number]. transmissPap tel: tel: Smear Screening, [phone] [facility] Encounter for Dec-2 [place] Referring In Womens insertion of 1-201 [place]. Provider: Health VEL, intrauterine 5 700 [address]efania PO Box contraceptive Medical Yamel L, 1522, deviceEncounter Center [address] [place], for , [facility], test, result 120, Center [id number], negative Macario, Carlos 120, [place] Renaldo [place], tel:[phone] [place], , [place]. [id number]. tel: tel: [phone] [facility] Pelvic and Dec-0 Yamel Referring In Womens perineal 9-201 [place]. Provider: Health VEL, painEncounter for 5 700 [address]efania PO Box removal of Medical Yamel L, 1522, intrauterine Center [address] [place], contraceptive , [facility] [place], deviceEncounter 120, Center [id number], for removal of Macario, Carlos 120, [place] intrauterine Renaldo [place], tel: contraceptive [phone] [place], device , [place]. [id number]. tel: tel: [phone] Judith Macario Dysfunctional Dec-0 Yamel Referring In Womens Ultrasound Uterine Bleeding 9-201 [place]. Provider: Adam CROWDER, 5 700 [address]ef[address] PO Box Medical Yamel L, 1522, Center [address], [facility] [place], 120, Center [id number], Renaldo, [facility] 120, [place] Renaldo [place], tel:[phone] [place], , [place]. [id number]. tel: tel:[phone] Judith Macario Dysfunctional Nov-2 Yamel Referring In Womens Uterine 3-201 [place]. Provider: Adam CROWDER, BleedingPelvic 5 700 [address]efania PO Box and perineal pain Medical Yamel [place]ons, 1522, Center [address], [facility] [place], 120, Center [id number], [facility], [place] Renaldo [place], tel:[phone] [place], , [place]. [id number]. tel: tel:[phone] Judith Macario Dec-3 Yamel Referring In Womens 1-201 [place]. Provider: Adam CROWDER, 4 700 [address]ef[address] PO Box Medical Yamel L, 1522, Center [address], [facility] [place], 120, Center [id number], [facility], [place] Renaldo [place], tel:[phone] [place], , [place]. [id number]. tel: tel:[phone] Judith Macario Dec-1 Yamel Referring In Womens 9-201 [place]. Provider: Adam CROWDER, 4 700 [address]ef[address] PO Box Medical Yamel L, 1522, Center [address], [facility] [place], 120, Center [id number], Renaldo, [facility] 120, [place] Renaldo [place], tel:[phone] [place], , [place]. [id number]. tel: tel:[phone] Family History Family Member Diagnosis Age At [...] older Payers Payer name Insurance type Covered libertarian ID Authorization(s) [facility] [id number] Medicaid [place] [id number] [facility] [id number] [facility] [id number] [place] [id number] [facility] [id number] Medicaid Social History Type Description Quantity Date Captured Alcohol Use Details No Caffeine Use Details Unknown Tobacco Use Status Never smoked tobacco Smoking Status Never smoker Vital Signs Date / Height Weight BMI Pulse Blood Temperature Respiratory Body Head BMI Time: Rate Pressure Rate Surface Circumference percentile Area 236.50 88 143/85 -2017 lbs /min mm[Hg] 9:17 AM Chief Complaint And Reason For Visit Unknown Chief Complaint And Reason For Visit Reason For Referral Reason For Referral Unknown Plan Of Care Date Type Action Status Goal Lifestyle education regarding completed diet Goal Lifestyle education regarding completed diet Appointment Lisa Jacinto BOOKED Appointment Lias Jacinto BOOKED Future Order: Radiology Order Transvaginal Pelvic Ultrasound Ordered ([id number]) Date Type Problem Goal Intervention Status Start [...]
--- OUTSIDE RECORDS SUMMARY | 2018-03-26 21:02 | External Medical Summary | Continuity of Care Document ---
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 Provider: Health DE, pregnancies, 8 700 Estefania PO Box second Medical Yamel L, 1522, trimesterOth Center 700 [facility] [employer] and [facility], conditions compl Suite Center [id number], preg/geijwnfr88 120, Carlos 120, [place] weeks gestation Renaldo Macario, tel: of [place], [place], [address] pregnancyPersonal [id number], [id number]. history of comp [place]. tel: of preg, chldbrth tel: [phone] and the puerp [id number] [facility] Supervision of Apr-0 [place] Referring In Womens Ultrasound other high risk [address] [place] [address]. Provider: Health DE, pregnancies, 8 700 Estefania PO Box second Medical Yamel L, 1522, trimesterOth Center 700 [facility] [employer] and [facility], conditions compl Suite Center [id number], preg/lmrxryoj45 120, [place] 120, [place] weeks gestation Renaldo Macario, tel: [place], [address], [id number]. [place]. tel: tel: [phone] [facility] Supervision of Nov- [place] Referring In Womens other high risk [place]. Provider: Health PA, pregnancies, 8 700 Estefania PO Box second Medical Yamel L, 1522, trimesterOth Center 700 [facility] [employer] and [facility], conditions compl Suite Center [id number], preg/lnhymggo75 120, [place] 120, [place] weeks gestation Renaldo Macario, tel: [place] pregnancyPersonal [id number], [id number]. history of comp [place]. tel: of preg, chldbrth tel: [phone] and the puerp [id number] [facility] Supervision of [place] Referring In Womens other high risk [place]. Provider: Health PA, pregnancies, 8 700 Estefania PO Box first Medical Yamel L, 1522, trimesterOth Center 700 [facility] [employer] and [facility], [facility], conditions compl Suite Center [id number], preg/qdaoojqm91 120, [place] 120, [place] weeks gestation Renaldo Macario, tel: of [place], pregnancyPersonal [id number], [id number]. history of comp [place]. tel: of preg, chldbrth tel: [phone] and the puerp [phone] [facility] Supervision of [place] Referring In Womens other high risk [place]. Provider: Health PA, pregnancies, 7 700 Estefania PO Box first Medical Yamel L, 1522, trimesterOth Center 700 [facility] [employer] and [facility], [facility], conditions compl Suite Center [id number], preg/chldbrthLess 120, [place] 120, [place] than 8 weeks Renaldo Macario, tel:2 gestation of [place], [place] pregnancyPersonal [id number], [id number]. history of comp [place]. tel: of preg, chldbrth tel: [phone] and the puerp [phone] [facility] Retained uterin Dec-2 [place] Referring In Womens Ultrasound contracep dev in [place]. Provider: Adam CROWDER, , unsp 7 700 Estefania PO Box trimester Medical Yamel L, 1522, Center 700 [place], [facility], [facility], Suite Center [id number], 120, [place] 120, [place] Renaldo Macario, tel: [place], [address], [id number]. [place]. tel: tel: [phone] [facility] Retained uterin Dec-1 [place] Referring In Womens contracep dev in [place]. Provider: Adam CROWDER, , unsp 7 700 Estefania PO Box trimesterEncntr Medical Yamel L, 1522, for removal and Center 700 [place], reinsertion of [facility], [facility], uterin contracep Suite Center , dev 120, [place] 120, [place] Renaldo Macario, tel: [place], [address], [id number]. [place]. tel: tel: [phone] [facility] Encntr for director phone [facility] Referring In Womens exam (general) [facility]. Provider: Adam CROWDER, (routine) w/o abn 7 700 Estefania PO Box findingsEncntr Medical Yamel L, 1522, screen for Center [address] [place], infections w sexl [facility] [place], mode of 120, Center , transmissEncntr Renaldo [place] 120, [place] screen for Renaldo [place], tel: infections w sexl [phone] [place], mode of , [place]. [id number]. transmissPap tel: tel: Smear Screening, [phone] [facility] Encounter for Dec-2 Yamel Referring In Womens insertion of [place]. Provider: Adam CROWDER, intrauterine 5 700 [place]efania PO Box contraceptive Medical Yamel L, 1522, deviceEncounter Center 700 [place], for [facility], test, result 120, Center [id number], negative Macario, [place] 120, [place] Renaldo [place], tel:+ [phone] [place], , [place]. [id number]. tel: tel:[phone] [facility] Pelvic and Dec-0 Yamel Referring In Womens perineal 9-201 [place]. Provider: Adam CROWDER, painEncounter for 5 700 Estefania PO Box removal of Medical Yamel L, 1522, intrauterine Center [facility] Jessica, contraceptive , [facility] Medical [place], deviceEncounter 120, Center [id number], for removal of Macario, [place] 120, [place] intrauterine Renaldo [place], tel:+ contraceptive [phone] [place], device , [place]. [id number]. tel: tel:[phone] [facility] Dysfunctional Dec-0 Yamel Referring In Womens Ultrasound Uterine Bleeding 9-201 [place]. Provider: Adam CROWDER, 5 700 [address]efania PO Box Medical Yamel L, 1522, Center [address], [facility] Medical [place], 120, Center [id number], Renaldo, [facility] 120, [place] Renaldo [place], tel:+ [phone] [place], , [place]. [id number]. tel: tel:[phone] Judith Macario Dysfunctional Nov-2 Yamel Referring In Womens Uterine 3-201 [place]. Provider: Adam CROWDER, BleedingPelvic 5 700 [address]ef[place] PO Box and perineal pain Medical Yamel L, 1522, Center [address], [facility] Medical [place], 120, Center [id number], Renaldo, [facility] 120, [place] Renaldo [place], tel:+ [phone] [place], , [place]. [id number]. tel: tel:[phone] Judith Macario Dec-3 Yamel Referring In Womens 1-201 [place]. Provider: Adam CROWDER, 4 700 [address]ef[address] PO Box Medical Yamel L, 1522, Center [address], [facility] Medical [place], 120, Center [id number], Renaldo, [facility] 120, [place] Renaldo [place], tel: [phone] [place], , [place]. [id number]. tel: tel: [phone] Judith Macario Yamel Referring In Womens 9-201 [place]. Provider: Adam CROWDER, 700 Estefania [facility] Medical Yamel L, 1522, Center 700 Jessica, , [facility] Medical [place], 120, [place] [id number], Renaldo, [facility] 120, Renaldo [place], tel: [phone] [place], , [place]. [id number]. tel: tel: [phone] Family History Family Member Diagnosis Age At [...] name Insurance type Covered republican ID Authorization(s) [facility] [id number] [place] [id number] [facility] [id number] [facility] [id number] [place] [id number] [facility] [id number] Medicaid Social History Type Description Quantity Date Captured Alcohol Use Details No Caffeine Use Details Unknown Tobacco Use Status Unknown Smoking Status Never smoker Vital Signs Date / Height Weight BMI Pulse Blood Temperature Respiratory Body Head BMI Time: Rate Pressure Rate Surface Circumference percentile Area 232.80 37.0 -2018 lbs 1 10:04 kg/m AM eter (2) 232.80 37.0 134/74 -2018 lbs 1 mm[Hg] 10:36 kg/m AM eter (2) Chief Complaint And Reason For Visit Unknown Chief Complaint And Reason For Visit Reason For Referral Reason For Referral Unknown Plan Of Care Date Type Action Status Goal Lifestyle education regarding completed diet Goal Lifestyle education regarding completed diet Appointment Lisa Jacinto BOOKED Appointment Lisa Jacinto BOOKED Future Order: Radiology Order Transvaginal Pelvic Ultrasound Ordered ([id number]) Future Order: Radiology Order OB Detailed Complete Ultrasound Ordered ([id number]) Date Type Problem Goal Intervention Status Start [...]
--- OUTSIDE RECORDS SUMMARY | 2018-03-26 21:02 | External Medical Summary | Continuity of Care Document ---
:1990 Author Organization [facility] Address [address] [place] [address] [phone] Phone Support Name Relationship Address Phone Lisandro Jcainto [address] [place] [address] [phone] [place] [address] Allergies, Adverse Reactions, Alerts Substance Reaction Severity Status No Known Drug Allergies Unknown Active Medications Medication Instructions Dosage Effective Dates (start - stop) Status Comments Drug Treatment Unknown Problems Condition Effective Dates (start - stop) Clinical Status Retained uterin contracep dev in - , unsp trimester Dysfunctional Uterine Bleeding - Dysfunctional Uterine Bleeding Pelvic and perineal pain Supervision of other high risk - pregnancies, first trimester Oth diseases and conditions compl - preg/chldbrth Less than 8 weeks gestation of - Personal history of comp of preg, - chldbrth and the puerp Retained uterin contracep dev in , unsp trimester Encntr for removal and reinsertion of - uterin contracep dev Pelvic and perineal pain Encounter for removal of intrauterine - contraceptive device Encounter for removal of intrauterine contraceptive device 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) w/o abn findings Encntr screen for infections w sexl mode of transmiss Encntr screen for infections w sexl mode of transmiss Pap Smear Screening, Cervix Encounter for insertion of - intrauterine contraceptive device Encounter for test, result - negative Active GERD Active Procedures Procedure Date OB US < 14 WKS, SINGLE FETUS Results Test Name Date and Time Measure Units Reference Range Abnormal Flag Comments Unknown Advance Directives Directive Yes / No Effective Date File Name Unknown Encounters Encounter Practice Location Reason(s) Diagnoses Date Provider Care Team Description For Visit Members [facility] Supervision of Dec-2 [place] Referring In Womens other high risk [place]. Provider: Adam CROWDER, pregnancies, 7 [address] first Medical Yamel Lyons, 1522, trimesterOth Center [address] [place], diseases and [facility], conditions compl Suite Center [id number], preg/chldbrthLess 120, [place] 120, [place] than 8 weeks Renaldo Macario, tel: gestation of [place], [place], pregnancyPersonal [id number], [id number]. history of comp [place]. tel: of preg, chldbrth tel: [phone] and the puerp [id number] [facility] Retained uterin Dec-2 [place] Referring In Womens Ultrasound contracep dev in [place]. Provider: Adam CROWDER, , unsp 7 [address] trimester Medical Yamel Lyons, 1522, Center [address] [place], [facility], Suite Center [id number], 120, Carlos 120, [place] Renaldo Macario, tel: [place], [phone], [id number]. [place]. tel: tel: [phone] [facility] Retained uterin Dec-1 [place] Referring In Womens contracep dev in [place]. Provider: Adam CROWDER, , unsp 7 [address] trimesterEncntr Medical Yamel Lyons, 152, for removal and Center [address] [place], [facility], uterin contracep Suite Center [id number], dev 120, [place] 120, [place] Renaldo [place]ario, tel: [place], [address], [id number]. [place]. 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 Provider: Adam CROWDER, (routine) w/o abn 7 [address] findingsEncntr Medical Yamel Lyons, 1522, screen for Center [address] [place], infections w sexl , [facility] [place], mode of 120, Center [id number], transmissEncntr Renaldo, Carlos 120, [place] screen for Renaldo [place], tel:[phone] infections w sexl [phone] [place], mode of , [place]. [id number]. transmissPap tel: tel:[phone] Smear Screening, [phone] Cervix [facility] Encounter for Dec-2 Yamel Referring In Womens insertion of 1- Estefania. Provider: Health PA, intrauterine 5 [address] contraceptive Medical Yamel L, 1522, deviceEncounter Center [address] [place] [address], for , [facility] [place]SH[place], test, result 120, Center , negative Macario, Carlos 120, [place] Renaldo [place], tel:+ [phone] [place], , [place]. [id number]. tel: tel:[phone] [facility] Pelvic and Dec-0 Yamel Referring In Womens perineal 9-201 Estefania. Provider: Health VEL, painEncounter for 5 [address] removal of Medical Yamel L, 1522, intrauterine Center [address] [place] [address], contraceptive , [facility] [place], deviceEncounter 120, Center [id number], for removal of Macario, Carlos 120, [place] intrauterine Renaldo [place], tel:[phone] contraceptive [phone] [place], device , [place]. [id number]. tel: tel:[phone] [facility] Dysfunctional Dec-0 Yamel Referring In Womens Ultrasound Uterine Bleeding 9-201 Estef[address]. Provider: Adam CROWDER, 5 [address] PO Box Medical Yamel L, 1522, Center [address] [place], [place] [address]ta, , [facility] [place], 120, Center [id number], Renaldo, Carlos 120, [place] Renaldo [place], tel:[phone] [place], , [place]. [id number]. tel: tel:[phone] [facility] Dysfunctional Nov-2 Yamel Referring In Womens Uterine 3-201 Estefania. Provider: Health VEL, BleedingPelvic 5 [address] PO Box and perineal pain Medical Yamel L, 1522, Center [address], [facility] [place], 120, Center [id number], Renaldo, [facility] 120, [place] Renaldo [place], tel:[phone] [place], , [place]. [id number]. tel: tel:[phone] [facility] Yamel Referring In Womens 1-201 Estefania. Provider: Adam CROWDER, 4 [address] PO Box Medical Yamel L, 1522, Center [address], [facility] [place], 120, Center [id number], Renaldo, [facility] 120, Renaldo [place], tel:[phone] [place], , [place]. [id number]. tel: tel:[phone] [facility] Yamel Referring In Womens -201 [address]. Provider: Adam CROWDER, 4 [address] PO Box Medical Yamel L, 1522, Center [address], [facility], 120, Center [id number], Renaldo [facility] 120, [place] Renaldo [place], tel:[phone] [place], , [place]. [id number]. tel: tel:[phone] Family History Family Member Diagnosis Age At [...] name Insurance type Covered democrat ID Authorization(s) [facility] [id number] [place] [id number] [facility] [id number] [facility] [id number] Medicaid [place] [id number] [facility] - [id number] Medicaid Social History Type Description Quantity Date [...] Order: Radiology Order Transvaginal Pelvic Ultrasound Ordered ([id number]) Date Type Problem Goal Intervention Status Start [...]
--- OUTSIDE RECORDS SUMMARY | 2018-03-26 21:03 | External Medical Summary | Continuity of Care Document ---
:1990 Author Organization [facility] Allergies Active Description Code Type Severity Reaction Onset Reported/ Identified Relationship Clinical to Patient Status Yes No Known 06288 3 N/A N/A Drug 0 Allergies Medications Medication Packaging Start Date Stop Date Route Dosage Sig Unspecified 08/28/2015 MIRENA 7 DIRECTED Problems Date Dx Attending Type Code Diagnosis Diagnosed By Coded 08/16/2015 Estefania Montesinos N93.8 Dysfunctional L Uterine Bleeding 09/04/2017 Mic Valentino O26.30 Retained uterin L contracep dev in , unsp trimester 12/11/2017 Mic Valentino O09.892 Supervision of other L high risk pregnancies, second trimester 12/11/2017 Mic Valentino O99.89 Oth diseases and L conditions compl preg/chldbrth 12/11/2017 Mic Valentino Z3A.21 21 weeks gestation L of 01/29/2018 Mic Valentino O09.893 Supervision of other L high risk pregnancies, third trimester 01/29/2018 Mic Valentino Z3A.28 28 weeks gestation L of 01/29/2018 Mic Valentino Z87.59 Personal history of L comp of preg, chldbrth and the puerp 03/02/2018 Mic Valentino O09.893 Supervision of other L high risk pregnancies, third trimester 03/02/2018 Mic Valentino Z3A.33 33 weeks gestation L of 03/02/2018 Mic Valentino O09.893 Supervision of other L high risk pregnancies, third trimester 03/02/2018 Mic Valentino O99.810 Abnormal glucose L complicating 03/02/2018 Mic Valentino O99.89 Oth diseases and L conditions compl preg/chldbrth 03/02/2018 Mic Valentino Z87.59 Personal history of L comp of preg, chldbrth and the puerp 03/12/2018 Mic Valentino O09.893 Supervision of other L high risk pregnancies, third trimester 03/12/2018 Mic Valentino W O43.199 Other malformation L of placenta, unspecified trimester 03/12/2018 Mic Valentino Z3A.34 34 weeks gestation L of 03/12/2018 Mic Valentino O09.893 Supervision of other L high risk pregnancies, third trimester 03/12/2018 Mic Valentino W O43.199 Other malformation L of placenta, unspecified trimester 03/12/2018 Mic Valentino Z3A.34 34 weeks gestation L of 03/12/2018 Mic Valentino Z87.59 Personal history of L comp of preg, chldbrth and the puerp 03/18/2018 Mic Valentino O09.893 Supervision of other L high risk pregnancies, third trimester 03/18/2018 Mic Valentino O43.199 Other malformation L of placenta, unspecified trimester 03/18/2018 Mic Valentino Z3A.35 35 weeks gestation L of 03/26/2018 W O09.893 Supervision of other high risk pregnancies, third trimester 03/26/2018 W O43.199 Other malformation of placenta, unspecified trimester 03/26/2018 W O99.810 Abnormal glucose complicating 03/26/2018 W Z3A.36 36 weeks gestation of Procedures Code Description [place] [address] Ultrasound, 08/16/2015 transvaginal 14517 OB US < 14 09/04/2017 WKS, SINGLE FETUS 56322 OB US, 12/11/2017 DETAILED, SNGL FETUS 50321 Ultrasnd preg 01/29/2018 uterus, flwup/repeat 72670 Ultrasnd preg 03/02/2018 uterus, flwup/repeat 88616 OB Visit No 03/02/2018 Charge 34094 biophys 03/12/2018 prfl w/o nstress test 34640 OB Visit No 03/12/2018 Charge 47874 biophys 03/18/2018 prfl w/o nstress test 07331 biophys 03/26/2018 prfl w/o nstress test Results There is no data. Encounters ACCT No. Visit Discharge Status Pt. Type Provider Facility Loc./Unit Complaint Date/Time [id number] 03/18/2018 03/18/2018 [facility], 11:15:00 23:59:59 Mic L [id number] 03/12/2018 03/12/2018 [facility] [place], 15:50:00 23:59:59 Mic L [id number] 03/12/2018 03/12/2018 [facility] [place], 14:45:00 23:59:59 Mic L [id number] 03/02/2018 03/02/2018 [facility] [place], 14:00:00 23:59:59 Mic L [id number] 03/02/2018 03/02/2018 [facility] [place], 13:45:00 23:59:59 Mic L [id number] 02/10/2018 02/10/2018 [facility] [place], 16:30:00 23:59:59 Mic L [id number] 02/06/2018 02/06/2018 [facility] [place], 08:37:00 23:59:59 Mic L [id number] 01/30/2018 01/30/2018 [facility] [place], 09:12:00 23:59:59 Mic L [id number] 01/29/2018 01/29/2018 [facility] [place], 13:40:00 23:59:59 Imc L [id number] 01/29/2018 01/29/2018 [facility] [place], 13:15:00 23:59:59 Mic L [id number] 01/08/2018 01/08/2018 [facility] [place], 09:45:00 23:59:59 Mic L [id number] 12/11/2017 12/11/2017 [facility] [place], 09:45:00 23:59:59 Mic L [id number] 12/11/2017 12/11/2017 [facility] [place], 09:15:00 23:59:59 Mic L [id number] 11/10/2017 11/10/2017 [facility] Out[facility] [place], 14:25:00 23:59:59 Mic L [id number] 11/06/2017 11/06/2017 [facility] Out[facility] [place], 10:00:00 23:59:59 Mic L [id number] 11/05/2017 11/05/2017 [facility] Out[facility] [place], 08:08:00 23:59:59 Mic L [id number] 10/09/2017 10/09/2017 [facility] Out[facility] [place], 09:15:00 23:59:59 Mic Lyons [id number] 09/04/2017 09/04/2017 [facility] Out[facility] [place], 15:20:00 23:59:59 Mic Lyons [id number] 09/04/2017 09/04/2017 [facility] Out[facility] [place], 15:15:00 23:59:59 Mic Lyons [id number] 08/19/2017 08/19/2017 [facility] Outpatient [place], 09:20:00 23:59:59 Mic Lyons [id number] 08/18/2017 08/18/2017 [facility] Out[facility] [place], 09:45:00 23:59:59 Mic Lyons [id number] 08/17/2017 08/17/2017 CLS Outpatient [place], 16:11:00 23:59:59 Jhonathan Triana [id number] 02/06/2017 02/06/2017 C[facility] Outpatient [place], 08:30:00 23:59:59 Lindsey Girma [id number] 04/10/2016 04/10/2016 CLS Outpatient Yamel, 16:07:00 23:59:59 Estefania L [id number] 08/28/2015 08/28/2015 CLS Outpatient [place], 14:00:00 23:59:59 Estefania L [id number] 08/16/2015 08/16/2015 CLS Outpatient [place], 09:40:00 23:59:59 Estefania L [id number] 08/16/2015 08/16/2015 CLS Outpatient [place], 09:15:00 23:59:59 Estefania L [id number] 07/31/2015 07/31/2015 CLS Outpatient Yamel, 10:00:00 23:59:59 Estefania L [id number] 03/26/2018 Document 08:50:00 Registration [id number] 03/26/2018 Document 08:45:00 Registration [id number] 03/22/2014 03/22/2014 C[facility] Outpatient [place], 16:57:35 23:59:59 Elio Booker [id number] 03/14/2014 03/14/2014 CLS Outpatient [place], 09:10:52 23:59:59 Anh Gallegos [id number] 05/17/2013 05/17/2013 [facility] Outpatient [place] 17:36:47 23:59:59 , Mena [id number] 05/15/2013 05/15/2013 [facility] Out[facility] [place] 18:05:41 23:59:59 , Mena [id number] 02/06/2013 02/06/2013 [facility] Outpatient Charlie, 10:16:22 23:59:59 Hector [id number] 02/04/2013 02/04/2013 [facility] Outpatient Charlie, 17:41:28 23:59:59 Hector
[2018-03-26] MEDS: LR 1,000 ML IV SCH ×2 (21:23→23:49)
[2018-03-26 21:41] VITALS: BMI 38.7
[2018-03-26] MEDS ORDERED: FOSFOMYCIN 3 GRAM PACKET PO ONE (22:16)
[2018-03-26] MEDS ORDERED: ACETAMINOPHEN 500 MG TABLET PO ONE (22:18)
[2018-03-26] MEDS ORDERED: CALCIUM CARBONATE Chewable 500mg TABLET PO PRN (23:25)
[2018-03-27] MEDS: LR 1,000 ML IV SCH (00:51)
[2018-03-27] MEDS ORDERED: ACETAMINOPHEN 500 MG TABLET PO PRN ×2 (07:08)
[2018-03-27 07:54] VITALS: BP 130/65; PULSE 87; RESP 16; TEMP 98.1; O2SAT 100
--- NOTE | 2018-03-27 08:54 | Progress Note ---
DATE 03/26/2018 This is a 27-year-old white female, G2, P1 at 36.3 weeks gestational age who came in this evening complaining of contractions. Originally they were every 20 minutes apart at home and by the time she arrived, she reported they were every 10 minutes apart. Her cervix was 4 cm dilated by the charge histotechnologist's check. This was a change of 1 cm from the office visit today of [address] Valentino. I had them do a UA and start an IV bolus with 500 mL of LR. heart tones were reactive. One hour later, her cervix was unchanged at 4 cm still and contractions had decreased in intensity and frequency. UA showed 2+ ketones, so I think there is an element of dehydration to these contractions so will go ahead and bolus the rest of the liter. UA also showed some white blood cells in the urine so I will treat for a possible UTI with p.o. Monurol x1. Given the patient is 4 cm dilated and a G2, P1 who lives in the [facility] and is , I don't feel comfortable sending her home without watching for a more extended period of time, so we will shift her to a medical outpatient and watch her overnight. I personally came in and saw her, examined the lab work and history. I talked to the patient and her significant other and questions were answered to their satisfaction. RONEY
== END 2018-03-27 11:20 | disposition home or self-care (01) ==
LOC: MC 18:50 → OBOBS 20:52
PROVIDERS: ADMIT Obstetrics & Gynecology; ATTEND Obstetrics & Gynecology

== ENCOUNTER 2018-03-30 14:01 | Inpatient (IN) ==
[2018-03-30] MEDS ORDERED: LR 1,000 ML IV PRN (17:03)
[2018-03-30] MEDS ORDERED: METHYLERGONOVINE 0.2 MG/ML INJECTION IM PRN (17:03)
[2018-03-30] MEDS ORDERED: MAG-AL + SIM ORAL LIQUID 30ml PO PRN ×2 (17:03→23:59)
[2018-03-30] MEDS ORDERED: CALCIUM CARBONATE Chewable 500mg TABLET PO PRN ×2 (17:03→23:59)
[2018-03-30] MEDS ORDERED: SALINE FLUSH 10ml SYRINGE IV PRN (17:03)
[2018-03-30] MEDS ORDERED: ACETAMINOPHEN 500 MG TABLET PO PRN ×2 (17:03→23:59)
[2018-03-30] MEDS ORDERED: CARBOPROST 250 MCG/ML INJECTION IM PRN (17:03)
[2018-03-30] MEDS ORDERED: D5LR 1,000 ML IV SCH (17:15)
--- NOTE | 2018-03-30 17:44 | OB/GYN Progress Note ---
- Pain Control Pain control: Tolerating well - Pelvic Exam Dilation (cm): 5 Effacement (%): 80 station: -3 Amniotic membrane status: Bulging - Contractions Monitor mode: External Contraction frequency: 3 Contraction pattern: Regular Contraction intensity: Moderate - Status status: Category l - Assessment and Plan Assessment: active labor Comments: Cervical change from 4 to 5 cm. Admit for Labor, GBS neg, Arom clear fluid copious amnounts of fluid tolerated by mom and fetus.
[2018-03-30 17:47] VITALS: RESP 16
[2018-03-30 18:04] VITALS: BMI 37.9
[2018-03-30] MEDS ORDERED: ROPIVACAINE 1% 10MG/ML INJ 200 MG, SUFentanil 50 MCG in NS 100 ML EPI PRN (20:03)
[2018-03-30] MEDS ORDERED: ONDANSETRON 4 MG/2 ML INJECTION IVP PRN (20:03)
[2018-03-30] MEDS ORDERED: NALOXONE 0.4 MG/ML INJECTION IVP PRN (20:03)
[2018-03-30] MEDS ORDERED: DiphenhydrAMINE 50 MG/ML INJECTION IVP PRN (20:03)
--- NOTE | 2018-03-30 20:03 | Anesthesia Preoperative Report ---
Anesthesia Epidural/Spinal Rec - Date and Time Date: 03/30/18 Preoperative Diagnosis: , 37 weeks Procedure: Labor Epidural - Vital Signs Vital Signs: Temperature 98.2 F 03/30/18 17:29 Respiratory Rate 16 03/30/18 17:29 Blood Pressure 131/87 03/30/18 17:29 NPO since: 1045 taco ernandez /Para: P:1 Heart Rate: 140 - Medictaions & Allergies Inpatient Medications: Current Medications Acetaminophen (Tylenol) 500 - 1,000 mg PO Q4H PRN PRN Reason: Pain Al Hydroxide/Mg Hydroxide (Maalox Plus) 30 ml PO Q3H PRN PRN Reason: Indigestion Calcium Carbonate (Tums) 500 - 1,000 mg PO Q2H PRN PRN Reason: Indigestion Carboprost Tromethamine (Hemabate) 250 mcg IM O PRN PRN Reason: .Downtime Dextrose/Lactated Ringer's (Dextrose 5%-Lactated Ringers) 1,000 mls @ 125 mls/ hr IV .Q8H DANAE Lactated Ringer's (Lactated Ringers) 1,000 mls @ 999 mls/hr IV .Q1H1M PRN Methylergonovine Maleate (Methergine) 0.2 mg IM O PRN Misoprostol (Cytotec) 800 mcg VA ONCE PRN Sodium Chloride (Iv Flush) 10 - 80 ml IV PRN PRN PRN Reason: Flushing Allergies/Adverse Reactions: Allergies Allergy/AdvReac Type Severity Reaction Status Date / Time No Known Allergies Allergy Verified 03/30/18 17:58 - Home Medications Home Medications: Home Medications Medication Instructions Recorded Confirmed Type Aspirin 1 tab PO DAILY 03/30/18 03/30/18 History 19 Tablet 1 tab PO DAILY 03/30/18 03/30/18 History - Medical History Gastrointestional: Reports: Morbid Obesity - Surgical History HEENT Surgeries: Reports: Tonsillectomy, Other (wisdom teeth removed) Reproductive Surgery/Treatment: DENIES: Section Anesthesia Reactions: None Hx Family Anesthesia Reaction: No History of Motion Sickness: No - Social History Smoking Status: Never smoker - Pertinent Findings Lab Data: CBC and BMP 03/30/18 17:31 - Physical Exam Respiratory Exam: lungs clear, bilateral breath sounds equal Cardiovascular Exam: regular rate and rhythm, no murmur - Airway Assessment Mallampati Score: II TMD: 3 Fingerbreadths Neck Extension: good Overall Assessment: no airway concerns - ASA ASA Score: 3 - Discussion Discussion: Discussed risks/options/alternatives of anesthesia and questions answered. Patient consents. Nursing pain assessment noted. Attestation Statement: Prior to the delivery of any anesthetic medication, I examined the patient, developed the plan, obtained the patient's consent and discussed the risk and benefits of the procedure with the patient/guardian.
[2018-03-30] MEDS ORDERED: OXYTOCIN DRIP 30 UNIT/500 ML ML IV SCH (23:45)
--- NOTE | 2018-03-30 23:58 | OB/GYN Procedure Note ---
Delivery date: 03/30/18 Intrapartal events: None Induction method: none Delivery augmentation: rupture of membranes Delivery monitor: external FHT, external uterine Route of delivery: Episiotomy description: None Laceration description: Periurethral - 1st Degree Delivery repair: chromic Estimated blood loss (mL): 200 Anesthesia type: Epidural Disposition: floor - Baby 1 Infant gender: Male presentation: Vertex Placenta delivery description: Spontaneous cord vessel description: 3 Vessels at 1 minute: 8 at 5 minutes: 9
[2018-03-30] MEDS ORDERED: DiphenhydrAMINE 25 MG CAPSULE PO PRN (23:59)
[2018-03-30] MEDS ORDERED: IBUPROFEN 800 MG TABLET PO PRN (23:59)
[2018-03-30] MEDS ORDERED: HYDROCORTISONE 2.5% CREAM 30gm RECTALLY PRN (23:59)
[2018-03-30] MEDS ORDERED: Oxycodone/Acetaminophen 5/325 1 TAB PO PRN (23:59)
[2018-03-31] MEDS ORDERED: PRENATAL VITAMIN TABLET PO SCH (09:00)
[2018-03-31] MEDS ORDERED: DOCUSATE CALCIUM 240 MG CAPSULE PO SCH (09:00)
--- NOTE | 2018-03-31 09:14 | OB/GYN Progress Note ---
OB-PP Progress Note - General PPD1 Maternal Group B Strep: Negative Maternal Rh: positive Maternal Rubella Status: Immune - Subjective Date: 03/31/18 Lochia: Minimal Pain: controlled Voiding: voiding Nausea or Vomiting Present: No - Objective Vital Signs: Last Vital Signs Temp 98.4 F 03/31/18 03:47 Pulse 101 H 03/31/18 03:47 Resp 16 03/31/18 03:47 BP 113/66 03/31/18 03:47 Pulse Ox 97 03/31/18 03:47 Urine Output: good General: alert and oriented Cardiovascular: regular rate,rhythm Respiratory: non-labored Abdomen: fundus firm, non-tender Extremities: non-tender Edema: none Laboratory: Laboratory Results - last 24 hr 03/30/18 17:31 WBC 20.1 H RBC 4.49 Hgb 10.3 L Hct 34.1 L MCV 75.9 L MCH 22.9 L MCHC 30.2 L RDW Std Deviation 42.8 Plt Count 259 MPV 11.3 - Assessment Assessment: SP, - Plan Plan: routine care
[2018-03-31] MEDS ORDERED: MEASLES-MUMPS-RUBELLA VACCINE 0.5ml INJECTION SUB-Q ONE (10:07)
--- NOTE | 2018-03-31 10:21 | Labor and Delivery Note ---
DATE OF DELIVERY 03/30/2018 There was a spontaneous vaginal delivery over intact perineum of a viable male named "Gray" with Apgars of 8/9. There was spontaneous delivery of the placenta with an EBL of 200 mL. There were bilateral periurethrals that were repaired with 3-0 chromic and a first degree vaginal that was repaired with 3-0 chromic. The patient had epidural anesthesia. This is a G2, P1 that presented to the office at 37 weeks gestational age who was rafa about every eight minutes. The patient lived approximately an hour away from the hospital and decided to go walk around a park in [place], [place] and then presented three hours later to Maternal/Child with contractions every five minutes. She was in latent phase of labor with no cervical change for approximately two hours and then changed her cervix from 4 cm to 5 cm. She was admitted at that time, given IV and she had artificial rupture of membranes with copious amounts of clear fluid at that time, tolerated by the baby. Her contraction pattern stayed at approximately every 4-5 minutes over the next several hours and at 10:30 p.m. after receiving epidural anesthesia, she was noted to be 8 cm, 0 station and 100% effaced. Half an hour later, she was complete and +2. She pushed for approximately 15 minutes and six contractions and delivered without difficulty. RONEY
[2018-03-31 12:21] VITALS: O2SAT 98
[2018-04-01 07:42] VITALS: BP 113/74; PULSE 75; TEMP 98
--- NOTE | 2018-04-01 08:17 | OB/GYN Progress Note ---
OB-PP Progress Note - General PPD2 Maternal Group B Strep: Negative Maternal Rh: positive Maternal Rubella Status: Immune - Subjective Date: 04/01/18 Lochia: Minimal Pain: controlled Voiding: voiding Nausea or Vomiting Present: No - Objective Vital Signs: Last Vital Signs Temp 98.0 F 04/01/18 07:41 Pulse 75 04/01/18 07:41 Resp 16 04/01/18 07:41 BP 113/74 04/01/18 07:41 Pulse Ox 98 04/01/18 01:05 Urine Output: good General: alert and oriented Abdomen: fundus firm Extremities: non-tender Edema: none - Assessment Assessment: - Plan Plan: routine care, discharge home
== END 2018-04-01 09:10 | disposition home or self-care (01) | DRG 775 ==
LOC: OBOBS 14:01 → MC 14:02
PROVIDERS: ADMIT Obstetrics & Gynecology; ATTEND Obstetrics & Gynecology